=== PATIENT | male | born 1950 | race Caucasian/White ===

== ENCOUNTER 2017-07-07 15:25 | Inpatient (IN) ==
--- NOTE | 2017-07-07 15:28 | Emergency Department Note ---
Disposition Clinical Impression: Cellulitis Disposition: Admitted As Inpatient Condition: Fair General Adult HPI - General Chief complaint: ED Skin/Abscess/Foreign Body Stated complaint: SKIN PROBLEM Time Seen by Provider: 07/07/17 15:27 - Related Data Home Medications Medication Instructions Recorded Confirmed Aspirin Enteric Coated [Aspirin EC] 81 mg PO DAILY 07/07/17 07/07/17 Carbidopa/Levodopa 25/100 [Sinemet 1 each PO HS 07/07/17 07/07/17 25/100] Carvedilol 12.5 mg PO BID 07/07/17 07/07/17 Cetirizine HCl [Zyrtec] 10 mg PO DAILY 07/07/17 07/07/17 Digoxin [Lanoxin] 0.125 mg PO DAILY 07/07/17 07/07/17 FLUoxetine HCl [Prozac] 40 mg PO QAM 07/07/17 07/07/17 Furosemide [Lasix] 20 mg PO DAILY 07/07/17 07/07/17 Gabapentin [Neurontin] 600 mg PO QID 07/07/17 07/07/17 Mag Hydrox/Al Hydrox/Simeth 5 ml PO TID PRN 07/07/17 07/07/17 [Antacid Suspension] Melatonin [Melatin] 9 mg PO HS 07/07/17 07/07/17 Multivitamin [One Daily 1 each PO DAILY 07/07/17 07/07/17 Multivitamin] Omeprazole [PriLOSEC] 20 mg PO BIDAC 07/07/17 07/07/17 Potassium Chloride [K-Tab ER] 20 meq PO DAILY 07/07/17 07/07/17 Rivaroxaban [Xarelto] 20 mg PO DAILY 07/07/17 07/07/17 Spironolactone [Aldactone] 25 mg PO DAILY 07/07/17 07/07/17 Tramadol HCl [Ultram] 50 mg PO TID 07/07/17 07/07/17 Previous Rx's Medication Instructions Recorded Atorvastatin [Lipitor] 20 mg PO HS #60 tablet 07/12/17 Doxycycline 100 mg PO BID #20 capsule 07/12/17 Allergies Allergy/AdvReac Type Severity Reaction Status Date / Time codeine Allergy Hives Verified 07/07/17 15:59 Opioids - Morphine Analogues Allergy Nausea Verified 07/07/17 15:59 diltiazem AdvReac Dizziness Verified 07/07/17 15:59 Course Vital Signs Temperature 97.4 F L 07/07/17 15:27 Pulse Rate 78 07/07/17 15:27 Respiratory Rate 16 07/07/17 15:27 Blood Pressure 109/72 07/07/17 15:27 O2 Sat by Pulse Oximetry 95 07/07/17 15:27 Temperature 97.8 F 07/12/17 07:00 Pulse Rate 66 07/12/17 07:00 Respiratory Rate 18 07/12/17 07:00 Blood Pressure 118/69 07/12/17 07:00 O2 Sat by Pulse Oximetry 94 07/12/17 07:00 Oxygen Delivery Oxygen Delivery Room Air Medical Decision Making - Lab Data Result diagrams: 07/12/17 03:15 07/12/17 03:15 Lab Results 07/07/17 07/07/17 Range/Units 16:02 16:02 WBC 10.5 (4.3-11.1) K/mcL RBC 4.68 (4.19-5.50) M/mcL Hgb 14.0 (12.9-16.9) g/dL Hct 41.6 (37.5-50.1) % MCV 88.9 (83.0-100.0) fL MCH 29.9 (28.0-33.3) pg MCHC 33.7 (31.6-35.5) g/dL RDW 13.1 (11.5-14.5) % Plt Count 218 (140-400) K/mcL MPV 10.1 (9.4-12.4) fL Immature Gran % 1.1 (0-4) % Seg Neutrophils % 73.6 % Lymphocytes % 15.0 % Monocytes % 7.6 % Eosinophils % 2.2 % Basophils % 0.5 % Neutrophils # 7.7 (1.6-8.9) K/mcL Lymphocytes # 1.6 (0.6-4.6) K/mcL Monocytes # 0.8 (0.0-1.3) K/mcL Eosinophils # 0.2 (0.0-0.6) K/mcL Basophils # 0.1 (0.0-0.2) K/mcL Nucleated RBCs/100 WBC 0.2 H (0) /100 WBC Sodium 133 L (136-145) mEq/L Potassium 5.0 (3.5-5.1) mEq/L Chloride 99 (98-107) mEq/L Carbon Dioxide 28 (23-29) mEq/L BUN 29 H (8-23) mg/dL Creatinine 1.60 H (0.70-1.30) mg/dL Est GFR ( Amer) 52 L (> 60) Est GFR (Non-Af Amer) 43 L (> 60) BUN/Creatinine Ratio 18 (6-26) Glucose 162 H (70-105) mg/dL Calculated Osmolality 285 (280-300) Calcium 9.6 (8.6-10.3) mg/dL Attestation Statement - Attestation Attestation: I examined this patient and my medical decision-making was reviewed with the Resident Physician. I agree with the documented findings, disposition and treatment plan as described except to the extent set forth below. [id number] time provided Patient transferred from the [facility] due to left upper extremity swelling. He recently underwent a skin biopsy. The patient has cellulitis extending from his left elbow distally. He does not appear systemically toxic or septic
[2017-07-07] MEDS ORDERED: Vancomycin 2,000 MG in D5% in Water 250 ML IVPB ONE (15:33)
[2017-07-07] MEDS ORDERED: Piperacillin/Tazobactam 3.375 GM in Water for inj. (sterile) 20 ML IVP ONE (15:34)
--- NOTE | 2017-07-07 15:41 | Emergency Department Note ---
Disposition Clinical Impression: Cellulitis Qualifiers: Site of cellulitis: extremity Site of cellulitis of extremity: upper extremity Laterality: left Qualified Code(s): L03.114 - Cellulitis of left upper limb Disposition: Admitted As Inpatient Condition: Fair General Adult HPI - General Chief complaint: ED Skin/Abscess/Foreign Body Stated complaint: SKIN PROBLEM Time Seen by Provider: 07/07/17 15:27 Source: patient Mode of arrival: EMS Limitations: no limitations Nursing Notes Reviewed: Yes Vital Signs Reviewed: Yes - History of Present Illness HPI Narrative: 67-year-old male history of hypertension diabetes A. fib on Xarelto presents for evaluation of left arm infection. Patient states that he had a biopsy obtained from his left arm approximately 8 or 9 days ago. Patient notes that since that in the past 2 days he has noted pain and redness at the site of the biopsy. Patient was [facility] and was given amoxicillin as well as Bactrim. Patient returned to due to unresolving symptoms. Patient denies any fevers. Notes pain redness and swelling over the biopsy site. Denies pain distally but appears to be localized. Neurovascularly intact. Patient denies any systemic symptoms. Denies any chest pain or shortness of breath. Pain Scale: 6 - Related Data Home Medications Medication Instructions Recorded Confirmed Aspirin Enteric Coated [Aspirin EC] 81 mg PO DAILY 07/07/17 07/07/17 Carbidopa/Levodopa 25/100 [Sinemet 1 each PO HS 07/07/17 07/07/17 25/100] Carvedilol 12.5 mg PO BID 07/07/17 07/07/17 Cetirizine HCl [Zyrtec] 10 mg PO DAILY 07/07/17 07/07/17 Digoxin [Lanoxin] 0.125 mg PO DAILY 07/07/17 07/07/17 FLUoxetine HCl [Prozac] 40 mg PO QAM 07/07/17 07/07/17 Furosemide [Lasix] 20 mg PO DAILY 07/07/17 07/07/17 Gabapentin [Neurontin] 600 mg PO QID 07/07/17 07/07/17 Mag Hydrox/Al Hydrox/Simeth 5 ml PO TID PRN 07/07/17 07/07/17 [Antacid Suspension] Melatonin [Melatin] 9 mg PO HS 07/07/17 07/07/17 Multivitamin [One Daily 1 each PO DAILY 07/07/17 07/07/17 Multivitamin] Omeprazole [PriLOSEC] 20 mg PO BIDAC 07/07/17 07/07/17 Potassium Chloride [K-Tab ER] 20 meq PO DAILY 07/07/17 07/07/17 Rivaroxaban [Xarelto] 20 mg PO DAILY 07/07/17 07/07/17 Spironolactone [Aldactone] 25 mg PO DAILY 07/07/17 07/07/17 Tramadol HCl [Ultram] 50 mg PO TID 07/07/17 07/07/17 Allergies Allergy/AdvReac Type Severity Reaction Status Date / Time codeine Allergy Hives Verified 07/07/17 15:59 Opioids - Morphine Analogues Allergy Nausea Verified 07/07/17 15:59 diltiazem AdvReac Dizziness Verified 07/07/17 15:59 All systems ED: reviewed and negative except as stated. Constitutional: Reports: as per HPI. Denies: fever Eyes: Reports: as per HPI ENT ED: Reports: as per HPI Cardiovascular: Reports: as per HPI Respiratory: Reports: as per HPI. Denies: cough, dyspnea Gastrointestinal: Reports: as per HPI. Denies: abdominal pain, nausea, vomiting Genitourinary: Reports: as per HPI Musculoskeletal: Reports: as per HPI Integumentary: Reports: as per HPI Neurological: Reports: as per HPI Psychiatric: Reports: as per HPI Endocrine: Reports: as per HPI Hematological/Lymphatic: Reports: as per HPI Past Medical History - Past Medical History Medical history: Reports: COPD, coronary artery disease, diabetes, hyperlipidemia, hypertension, renal disease Psychiatric history: Reports: no psych history - Social History Smoking Status: Never smoker Smokeless Tobacco Status: No Alcohol use: Reports: none Drug use: Reports: other Physical Exam - General Limitations: no limitations General appearance: alert, in no apparent distress - Head Head exam: atraumatic, normocephalic, normal inspection - Eye Eye exam: Present: normal appearance, EOMI - ENT ENT exam: normal exam, mucous membranes moist - Neck Neck exam: Present: normal inspection - Chest Chest inspection: Present: normal inspection - Respiratory Respiratory exam: Present: normal lung sounds bilaterally. Absent: respiratory distress - Cardiovascular Cardiovascular exam: Present: regular rate, normal rhythm - Abdominal Exam Abdominal exam: Present: soft, Non-Tender - Expanded Upper Extremity Exam Shoulder exam: Present: normal inspection. Absent: tenderness Arm exam: Present: other (Tenderness, swelling, erythema just above the elbow distally. Evidence of a recent incision proximal to the elbow with purulent discharge. Notable crepitus. Neurovascularly intact with brisk cap refill. Able to flex and extend the elbow.) Neuromotor exam: Normal: wrist extension Neurosensory exam: Normal: radial nerve Vascular exam: Normal: capillary refill, radial pulse - Expanded Lower Extremity Exam Neurovascular/Tendon exam: Present: normal capillary refill. Absent: pulse deficit, motor deficit - Neurological Exam Neurological exam: Present: alert, oriented X3 - Skin Skin exam: Present: warm, dry, intact, normal color Course Course Narrative: Patient seen and examined. Patient appears to 4. Concerns of cellulitis and potential deeper infection. Patient will get a CT image of the left arm. Patient to get basic lab work at the [facility]. That will be repeated. Patient also pain control as well as antibiotics. Patient will require admission with IV antibiotics to ensure adequate therapy. Vital Signs Temperature 97.4 F L 07/07/17 15:27 Pulse Rate 78 07/07/17 15:27 Respiratory Rate 16 07/07/17 15:27 Blood Pressure 109/72 07/07/17 15:27 O2 Sat by Pulse Oximetry 95 07/07/17 15:27 Temperature 97.4 F L 07/07/17 18:54 Pulse Rate 77 07/07/17 18:54 Respiratory Rate 16 07/07/17 18:54 Blood Pressure 129/60 07/07/17 18:54 O2 Sat by Pulse Oximetry 96 07/07/17 18:54 Oxygen Delivery Oxygen Delivery Room Air Medical Decision Making - [facility] Narrative Medical decision making narrative: Patient presents for cellulitis of the left arm. Patient did have a biopsy lesion of that arm 8 or 9 days ago. Looking back in the records it appears that there is no surgeon noted that perform the biopsy. The patient was unfamiliar with the surgeon's name. States that he was at traveling. Patient is instructed to follow-up here at [place]. Patient had a bedside ultrasound which showed cobblestoning of the soft tissue with no discrete fluid collection or drainable abscess. Patient had basic lab work as well as a CBC. Patient was started on vancomycin and Zosyn given his history of diabetes. The patient would likely need IV antibiotics and monitoring to ensure symptom improvement. Patient's kidney function would not allow for a contrast scan. Patient will be admitted to the hospitalist service for further evaluation and monitoring. Patient's updated on plan of care. Patient was given adequate pain control emergency department. - Lab Data Lab results reviewed: Yes I reviewed the patient's lab results. Result diagrams: 07/07/17 16:02 07/07/17 16:02 Lab Results 07/07/17 07/07/17 Range/Units 16:02 16:02 WBC 10.5 (4.3-11.1) K/mcL RBC 4.68 (4.19-5.50) M/mcL Hgb 14.0 (12.9-16.9) g/dL Hct 41.6 (37.5-50.1) % MCV 88.9 (83.0-100.0) fL MCH 29.9 (28.0-33.3) pg MCHC 33.7 (31.6-35.5) g/dL RDW 13.1 (11.5-14.5) % Plt Count 218 (140-400) K/mcL MPV 10.1 (9.4-12.4) fL Immature Gran % 1.1 (0-4) % Seg Neutrophils % 73.6 % Lymphocytes % 15.0 % Monocytes % 7.6 % Eosinophils % 2.2 % Basophils % 0.5 % Neutrophils # 7.7 (1.6-8.9) K/mcL Lymphocytes # 1.6 (0.6-4.6) K/mcL Monocytes # 0.8 (0.0-1.3) K/mcL Eosinophils # 0.2 (0.0-0.6) K/mcL Basophils # 0.1 (0.0-0.2) K/mcL Nucleated RBCs/100 WBC 0.2 H (0) /100 WBC Sodium 133 L (136-145) mEq/L Potassium 5.0 (3.5-5.1) mEq/L Chloride 99 (98-107) mEq/L Carbon Dioxide 28 (23-29) mEq/L BUN 29 H (8-23) mg/dL Creatinine 1.60 H (0.70-1.30) mg/dL Est GFR ( Amer) 52 L (> 60) Est GFR (Non-Af Amer) 43 L (> 60) BUN/Creatinine Ratio 18 (6-26) Glucose 162 H (70-105) mg/dL Calculated Osmolality 285 (280-300) Calcium 9.6 (8.6-10.3) mg/dL S.B.A.R. - S.B.A.R. Situation: Demographics Background: Presenting Complaint Assessment: Vital Signs, Course and respsone to treatment, Patient/Family Expectation Recommendation: Barrier(s) to disposition, Recommendation based on pending studies, treatments, or consults S.B.A.R. Report Given to: Dr. Olsen SKaren.A.RReggie Repor Time: 16:49
[2017-07-07] MEDS ORDERED: Vancomycin 1,750 MG in D5% in Water 500 ML IVPB ONE (15:45)
[2017-07-07] MEDS ORDERED: *HR* HYDROmorphone (PF) 1 MG/ML SYRINGE IVP ONE (15:46)
[2017-07-07 16:12] LABS: Basophils # 0.1 K/mcL (0.0-0.2); Basophils % 0.5 %; Eosinophils # 0.2 K/mcL (0.0-0.6); Eosinophils % 2.2 %; Hematocrit 41.6 % (37.5-50.1); Immature Granulocytes % 1.1 % (0-4); Lymphocytes # 1.6 K/mcL (0.6-4.6); Mean Corpuscular HGB Conc 33.7 g/dL (31.6-35.5); Mean Corpuscular Hemoglobin 29.9 pg (28.0-33.3); Mean Corpuscular Volume 88.9 fL (83.0-100.0); Mean Platelet Volume 10.1 fL (9.4-12.4); Monocytes # 0.8 K/mcL (0.0-1.3); Monocytes % 7.6 %; Neutrophils # 7.7 K/mcL (1.6-8.9); Nucleated Red Blood Cells 0.2 /100 WBC (0); Platelet Count 218 K/mcL (140-400); Red Blood Count 4.68 M/mcL (4.19-5.50); Red Cell Distribution Width 13.1 % (11.5-14.5); Segmented Neutrophils % 73.6 %
[2017-07-07 16:23] LABS: Calcium 9.6 mg/dL (8.6-10.3)
[2017-07-07] MEDS ORDERED: Acetaminophen 325 MG TABLET PO PRN (21:01)
[2017-07-07] MEDS ORDERED: Ondansetron 4 MG/2 ML VIAL IVP PRN (21:01)
[2017-07-07] MEDS ORDERED: Naloxone 0.4 MG/ML INJ IVP PRN (21:01)
[2017-07-07] MEDS ORDERED: Ipratropium/Albuterol Neb 3 ML IH PRN (21:11)
[2017-07-07] MEDS ORDERED: Dextrose Gel 15 GM PO PRN ×2 (21:13)
[2017-07-07] MEDS ORDERED: *HR* Dextrose 50 % in Water (Syg) 50 ML SYRINGE IVP PRN (21:13)
[2017-07-07] MEDS ORDERED: D5% in Water 1,000 ML IVC PRN (21:13)
[2017-07-07] MEDS ORDERED: Mag Hydrox/Al Hydrox/Simeth 30 ML UDC PO PRN (21:14)
[2017-07-07] MEDS: Insulin LISPRO 300 UNITS/3 ML VIAL SQ SCH (21:49)
[2017-07-07] MEDS ORDERED: *HR* Morphine 2 MG/ML SYRINGE IVP ONE (22:10)
--- NOTE | 2017-07-07 22:19 | Internal Med History&Physical ---
Date of Encounter: 07/07/17 Time of Encounter: 20:30 Assessment and Plan (1) Cellulitis of left upper extremity Current visit: Yes Status: Acute Acute cellulitis of the LUE. Pt. reports he had biopsy performed at the site one week ago and was fine for two days. On third day. pt. reports edema and erythema at the site and of the LUE. CT of the LUE w/o contrast today shows there is soft tissue swelling within the subcutaneous fat of the forearm, especially at the olecranon. Given the heterogeneous enhancement, phlegmon is considered most likely. a focal fluid collection is not identified. Focal spot at the dural irregularity more proximally and laterally at the level distal humerus presumably represents the biopsy site. Again there is soft tissue stranding deep to that, but no focal fluid collections identified. Blood cultures x 2 ordered. Wound culture ordered. Wound care consult and daily wound care ordered. IVPB clindamycin 900 mg Q8HR for cellulitis infection coverage ( no renal dosing necessary according to pharmacy). Will adjust abx coverage based on culture results. Pt. does not currently meet sepsis criteria. Pt. discussed w/Dr. Dumont who is in agreement w/plan of care. Pt. is at high risk for further morbidity and increased infection d/t current cellulitis, failure of OP abx therapy, current sx, and risk factors. Inpatient. (2) Hyponatremia Current visit: Yes Status: Acute Acute hyponatremia with sodium of 133 on admission. Will monitor sodium in f/u labs and consider using IV fluids judiciously d/t current renal dysfunction for hyponatremia correction. (3) COPD (chronic obstructive pulmonary disease) Current visit: Yes Status: Chronic Hx of chronic COPD. Currently stable. Pt. reports jan mild SOB at this time and is 96% on RA. Supplemental O2 w/titration and SpO2 monitoring as needed. DuoNebs Q6 PRN. Will add steroid if pt. begins to show signs of acute exacerbation. Qualifiers: COPD type: unspecified COPD Qualified Code(s): J44.9 - Chronic obstructive pulmonary disease, unspecified (4) History of atrial fibrillation Current visit: Yes Status: Chronic Hx of chronic atrial fibrillation on Xarelto. Pt. denies chest pain or palpitations on exam. Continuous cardiac telemetry. Will continue pts. Xarelto and monitor for signs of bleeding. (5) CAD (coronary artery disease) Current visit: Yes Status: Chronic Hx of chronic CAD. Pt. reports hx of cardiac risk factors that include, HTN, HLD , DM (uncontrolled at this time by diet alone), atrial fibrillation on Xarelto, and CKD. Continuous cardiac telemetry. Will continue pts. Aldactone, potassium chloride, and Zarontin. We will add Lipitor 20 mg at bedtime. Qualifiers: Coronary Disease-Associated Artery/Lesion type: [place] artery [place] vs. transplanted heart: [place] heart Associated angina: angina presence unspecified Qualified Code(s): I25.10 - Atherosclerotic heart disease of [place] coronary artery without angina pectoris (6) Diabetes Current visit: Yes Status: Chronic Hx of chronic diabetes that the pt. states he manages w/diet. On admission, BG was 162. Pt. does not currently use any oral anti-hyperglycemic medications or insulin. A1c in a.m labs. BG checks ACHS. Will administer low-dose correction insulin sliding scale PRN and hypoglycemic protocol. ADA and cardiac diet ordered. Diabetes education ordered. Qualifiers: Diabetes mellitus type: type 2 Diabetes mellitus complication status: with unspecified complications Diabetes mellitus usp insulin use: without usp use Qualified Code(s): E11.8 - Type 2 diabetes mellitus with unspecified complications (7) HLD (hyperlipidemia) Current visit: Yes Status: Chronic Hx of chronic HLD. Lipid panel in a.m. labs. Pt. does not currently take statin for his HLD. Administer Lipitor 20 mg HS. Qualifiers: Hyperlipidemia type: pure hypercholesterolemia Qualified Code(s): E78.00 - Pure hypercholesterolemia, unspecified; E78.0 - Pure hypercholesterolemia (8) HTN (hypertension) Current visit: Yes Status: Chronic Hx of chronic HTN. Monitor pt. and VS. Continue pts. aldactone. Qualifiers: Hypertension type: essential hypertension Qualified Code(s): I10 - Essential (primary) hypertension (9) CKD (chronic kidney disease) stage 3, GFR 30-59 ml/min Current visit: Yes Status: Chronic Hx of CKD. Pt. currently in stage 3 w/GFR of 43 and creatinine of 1.60. Will use IV fluids judiciously and avoid nephrotoxins. Monitor I&O and f/u labs. (10) DVT prophylaxis Current visit: Yes Status: Acute Continue pts. Xarelto for DVT prophylaxis. Monitor pt. for signs of bleeding. Internal Medicine - H&P: HPI Chief complaint: Pain and swelling of upper left arm Admitted From: Emergency Dept Plans for Post Hospital Care: Home History of present illness: Mr. Roberts is a 67 year old male with medical hx of COPD, CAD, diabetes the patient states he controls with diet only, atrial fibrillation, HLD, HTN, and renal disease presents from the ED after being referred from the [place] urgent care for chief complaint of pain and swelling in his left upper arm for the past 5 days. Patient states he had a biopsy one week ago and his arm was okay for 2 days. On day 3 the patient arm began to become edematous and erythematous. He was placed on by mouth amoxicillin and Bactrim. Patient states symptoms worsened. Patient reports shortness of breath associated with his COPD but denies recent illness, fever, chills, nausea, vomiting, chest pain, palpitations , changes in vision, headache, cough, abdominal pain, diarrhea, constipation, unusual bleeding, numbness, tingling, dizziness, lightheadedness, pre-syncope, or syncope. Past Med Surg Social Fam HX - Past Medical History Source: patient, old records reviewed Medical history: COPD, coronary artery disease, diabetes (Pt. reports he controls his DM w/diet only. BG in ED was >160), hyperlipidemia, hypertension, renal disease Psychiatric history: no psych history - Past Surgical History Surgical History: non-contributory - Social History Smoking Status: Former smoker Packs per day: 2 PPD - Reports quitting 30 years ago Smokeless Tobacco Status: No Alcohol use: none Drug use: other Current living situation: Home Activity Level: Independent ambulation Recent Out of Country Travel Within the Last 8 Weeks: No Exposure or Possible Exposure to Illness During Travel: No - Family History Father Race: Family Member Ethnicity: Non- Living Status: Age at : 66 Cause of : Hit by a train Hx Family Cardiac Disorders: Yes (CAD, SC x3, HTN) Hx Family Neuromuscular Disorders: Yes (Parkinson's disease) Mother Race: Family Member Ethnicity: Non- Living Status: Age at : 91 Cause of : Old age Hx Family Genitourinary Disorders: Yes (Lost one kidney d/t TB as a child) Brother Race: Family Member Ethnicity: Non- Living Status: Age at : 55 Cause of : Drug overdose Hx Family Psychosocial Disorders: Yes (Drug abuse) Sister Race: Family Member Ethnicity: Non- Living Status: Still Living Hx Family Musculoskeletal Disorders: Yes (Osteoporosis) Internal Medicine - H&P: Meds Aspirin Enteric Coated [Aspirin EC] 81 mg PO DAILY 07/07/17 [History] Carbidopa/Levodopa 25/100 [Sinemet 25/100] 1 each PO HS 07/07/17 [History] Carvedilol 12.5 mg PO BID 07/07/17 [History] Cetirizine HCl [Zyrtec] 10 mg PO DAILY 07/07/17 [History] Digoxin [Lanoxin] 0.125 mg PO DAILY 07/07/17 [History] FLUoxetine HCl [Prozac] 40 mg PO QAM 07/07/17 [History] Furosemide [Lasix] 20 mg PO DAILY 07/07/17 [History] Gabapentin [Neurontin] 600 mg PO QID 07/07/17 [History] Mag Hydrox/Al Hydrox/Simeth [Antacid Suspension] 5 ml PO TID PRN 07/07/17 [ History] Melatonin [Melatin] 9 mg PO HS 07/07/17 [History] Multivitamin [One Daily Multivitamin] 1 each PO DAILY 07/07/17 [History] Omeprazole [PriLOSEC] 20 mg PO BIDAC 07/07/17 [History] Potassium Chloride [K-Tab ER] 20 meq PO DAILY 07/07/17 [History] Rivaroxaban [Xarelto] 20 mg PO DAILY 07/07/17 [History] Spironolactone [Aldactone] 25 mg PO DAILY 07/07/17 [History] Tramadol HCl [Ultram] 50 mg PO TID 07/07/17 [History] 3 Allergy/AdvReac Type Severity Reaction Status Date / Time codeine Allergy Hives Verified 07/07/17 15:59 Opioids - Morphine Analogues Allergy Nausea Verified 07/07/17 15:59 diltiazem AdvReac Dizziness Verified 07/07/17 15:59 All Systems PM: A 10-system review of systems was performed and is negative for pertinent findings except as documented above in the HPI. - Constitutional Constitutional: as per HPI, no chills, no fever(s), no night sweats - EENT Eyes: no change in vision, no discharge, no pain, no photophobia Ears: no ear discharge, no ear pain, no tinnitus Nose, mouth and throat: no dysphagia, no nasal discharge, no neck pain, no sore throat - Breasts Breasts: as per HPI - Cardiovascular Cardiovascular ROS IM: as per HPI, dyspnea, dyspnea on exertion, no chest pain, no diaphoresis, no lightheadedness, no palpitations, no syncope - Respiratory Respiratory: as per HPI, dyspnea, dyspnea on exertion, no cough, no wheezing, no excessive phlegm production - Gastrointestinal Gastrointestinal: no abdominal pain, no diarrhea, no hematemesis, no hematochezia, no melena, no nausea, no vomiting - Genitourinary Genitourinary ROS male: as per HPI - Musculoskeletal Musculoskeletal ROS IM: no numbness, no tingling - Integumentary Integumentary IM: as per HPI, erythema (Left upper arm at biopsy incision site) , sores (Left upper arm at biopsy incision site) - Neurological Neurological ROS: no confusion, no convulsions, no focal weakness, no numbness, no tingling, no tremor(s) - Psychiatric Psychiatric: as per HPI - Endocrine Endocrine IM: as per HPI - Hematologic/Lymphatic Hematologic/Lymphatic: no easy bruising - Allergic/Immunologic Allergic/Immunologic: as per HPI - Constitutional Vitals: Temp Pulse Resp BP Pulse Ox 97.4 F L 77 16 129/60 96 07/07/17 18:54 07/07/17 18:54 07/07/17 18:54 07/07/17 18:54 07/07/17 18:54 General appearance: Present: cooperative, A&O X 3, pleasant, no acute distress, obese, answers questions appropriately - Head Head exam: Present: atraumatic, normal inspection, normocephalic - Eye Eye exam: Present: PERRL, conjuntiva pink, sclera anicteric Pupils: Present: PERRL - ENT ENT exam: Present: normal exam, normal external ear exam - Neck Neck exam general surgery: Present: normal inspection, supple, trachea midline. Absent: lymphadenopathy - Respiratory Respiratory exam: Present: accessory muscle use, decreased breath sounds - Cardiovascular Cardiovascular exam: Present: RRR, +S1, +S2. Absent: diastolic murmur, gallop, rubs, systolic murmur - GI/Abdominal GI/Abdominal exam: Present: normal bowel sounds, soft, no peritoneal signs. Absent: distended, tenderness - Rectal Rectal exam: Present: deferred - Additional comments: exam deferred. - Extremities Exam Extremities exam: Present: warm, radial pulses palpable and symmetrical. Absent : calf tenderness, cyanotic, pedal edema - Expanded Upper Extremities Exam Upper Arm exam: Present: erythema (LUE), swelling (LUE), tenderness (LUE) - Back Exam Back exam: Present: normal inspection - Neurological Exam Neurological exam: Present: CN II-XII intact, oriented X3, no focal deficits. Absent: pronater drift, facial droop, speech deficit - Psychiatric Psychiatric exam: Present: normal affect, normal mood - Skin Skin exam: Present: erythema (LUE), warm (LUE) Internal Med - H&P Results - Labs CBC & Chem 7: 07/07/17 16:02 07/07/17 16:02 - Diagnostic Studies Other Images Additional comments: Impressions Upper Extremity CT 07/07/17 16:31 IMPRESSION: 1. There is soft tissue swelling within the subcutaneous fat of the forearm, especially at the olecranon. Given the heterogeneous enhancement, phlegmon is considered most likely. A focal fluid collection is not identified. 2. Focal spot the dural irregularity more proximally and laterally at the level the distal humerus presumably represents the biopsy site. Again, there is soft tissue stranding deep to that, but no focal fluid collection is identified. D/ / Kody Rodgers MD / Kody Rodgers MD Interpreting Provider: Kody Rodgers MD
[2017-07-07] MEDS ORDERED: Lidocaine -MPF 1% 5 ML AMPUL SQ ONE (22:30)
[2017-07-07] MEDS: *HR* OxyCODONE/APAP 5/325 TABLET PO PRN (22:36)
[2017-07-07] MEDS: Gabapentin 300 MG CAPSULE PO SCH (22:36)
[2017-07-07] MEDS ORDERED: Water for inj. (sterile) 10 ML IV ONE (23:23)
[2017-07-08] MEDS: Clindamycin 900 MG/50 ML 900 MG/50 ML IV.SOLN IVPB SCH ×4 (00:02→23:47)
--- NOTE | 2017-07-08 02:40 | Procedure Note ---
Date of procedure: 07/07/17 Pre-op diagnosis: Infection at site of sutures status post skin biopsy. Post-op diagnosis: same Procedure: Area was cleaned with betadine and alcohol swab. The area of infection was injected with 5 ml of 1% Lidocaine. There was about 1 ml of blood loss. Patient is on Xarelto and was monitored for any excess bleeding. There were 8 sutures that were removed. there was about 2 cm of region along the surgical cut site that could not be seen due to inflammed tissue. The wound site was irrigated and left open to drain. Anesthesia: local Estimated blood loss (cc): 1 Pathology: none sent Condition: stable (Done at bedside)
[2017-07-08 05:47] LABS: Basophils # 0.1 K/mcL (0.0-0.2); Basophils % 0.9 %; Eosinophils # 0.5 K/mcL (0.0-0.6); Eosinophils % 4.8 %; Hematocrit 39.5 % (37.5-50.1); Hemoglobin 13.7 g/dL (12.9-16.9); Immature Granulocytes % 1.6 % (0-4); Mean Corpuscular HGB Conc 34.7 g/dL (31.6-35.5); Mean Corpuscular Hemoglobin 30.2 pg (28.0-33.3); Mean Corpuscular Volume 87.2 fL (83.0-100.0); Mean Platelet Volume 10.1 fL (9.4-12.4); Monocytes # 1.1 K/mcL (0.0-1.3); Monocytes % 11.5 %; Neutrophils # 6.1 K/mcL (1.6-8.9); Platelet Count 166 K/mcL (140-400); Red Blood Count 4.53 M/mcL (4.19-5.50); Red Cell Distribution Width 13.2 % (11.5-14.5); Segmented Neutrophils % 61.2 %
[2017-07-08 06:06] LABS: Hemoglobin A1C 6.7 %
[2017-07-08] MEDS: Insulin LISPRO 300 UNITS/3 ML VIAL SQ SCH ×4 (07:44→21:13)
[2017-07-08] MEDS ORDERED: Gabapentin 300 MG CAPSULE PO SCH (09:00)
[2017-07-08] MEDS ORDERED: *HR* Rivaroxaban 10 MG TABLET PO SCH (09:00)
[2017-07-08 09:43] LABS: Albumin 3.7 g/dL (3.5-5.7); Albumin/Globulin Ratio 1.3 (1.1-2.2); Bilirubin,Total 1.1 mg/dL (0.3-1.0); Chol/HDL Ratio 3.9 (0-4.9); Globulin 2.9 g/dL (2.4-3.5); Magnesium 2.1 mg/dL (1.6-2.6); Potassium 4.5 mEq/L (3.5-5.1); Total Protein 6.6 g/dL (6.4-8.9)
[2017-07-08] MEDS: Gabapentin 300 MG CAPSULE PO SCH ×4 (09:43→21:13)
[2017-07-08] MEDS: Multivit/Ca/Min/Fe/FA 1 TAB TABLET PO SCH (09:43)
[2017-07-08] MEDS: traMADol 50 MG TABLET PO SCH ×3 (09:43→21:12)
[2017-07-08] MEDS: *HR* Digoxin 0.125 MG TABLET PO SCH (09:44)
[2017-07-08] MEDS: Loratadine 10 MG TABLET PO SCH (09:45)
[2017-07-08] MEDS: Furosemide 20 MG TABLET PO SCH (09:45)
[2017-07-08] MEDS: Aspirin Enteric Coated 81 MG Tablet PO SCH (09:45)
[2017-07-08] MEDS: Spironolactone 25 MG TABLET PO SCH (09:45)
[2017-07-08] MEDS: FLUoxetine 20 MG CAPSULE PO SCH (09:45)
[2017-07-08] MEDS: *HR* OxyCODONE/APAP 5/325 TABLET PO PRN (11:41)
--- NOTE | 2017-07-08 15:59 | Internal Med Progress Note ---
Date of Encounter: 07/08/17 Time of Encounter: 09:00 - Assessment and plan (1) Cellulitis of left upper extremity Current Visit: Yes Status: Acute Assessment and plan: Patient had biopsy of mole one week ago at the [facility] to left upper arm. A few days later he noticed cellulitis around the area. Patient failed outpatient treatment with amoxicillin and Bactrim. CT of the arm showed soft tissue swelling with no fluid collection. Patient received 1 dose of vancomycin and Zosyn in the emergency department. Patient had internal sutures removed by admitting physician. The patient is being treated with clindamycin 900 IV mg 3 times daily. Wound cultures have been collected and received, pending. Will adjust antibiotic based on results. Continue IV antibiotic and pain control. Wound care consultation is in and pending. (2) COPD (chronic obstructive pulmonary disease) Current Visit: Yes Status: Chronic Assessment and plan: No acute exacerbation. Patient is not requiring supplemental oxygen. Continue home medications. Qualifiers: COPD type: unspecified COPD Qualified Code(s): J44.9 - Chronic obstructive pulmonary disease, unspecified (3) CAD (coronary artery disease) Current Visit: Yes Status: Chronic Assessment and plan: Patient denies chest pain. Continue aspirin, statin, beta pili. Qualifiers: Coronary Disease-Associated Artery/Lesion type: [place] artery [place] vs. transplanted heart: [place] heart Associated angina: angina presence unspecified Qualified Code(s): I25.10 - Atherosclerotic heart disease of [place] coronary artery without angina pectoris (4) Diabetes Current Visit: Yes Status: Chronic Assessment and plan: A1c is 6.7. Continue Accu-Cheks, diabetic diet, sliding scale insulin. Qualifiers: Diabetes mellitus type: type 2 Diabetes mellitus complication status: with unspecified complications Diabetes mellitus intermediate teacher insulin use: without assisted use Qualified Code(s): E11.8 - Type 2 diabetes mellitus with unspecified complications (5) HLD (hyperlipidemia) Current Visit: Yes Status: Chronic Assessment and plan: Chronic. Continue statin home dose. Qualifiers: Hyperlipidemia type: pure hypercholesterolemia Qualified Code(s): E78.00 - Pure hypercholesterolemia, unspecified; E78.0 - Pure hypercholesterolemia (6) HTN (hypertension) Current Visit: Yes Status: Chronic Assessment and plan: Well-controlled. Continue home medications. Continue monitor vital signs per order. Qualifiers: Hypertension type: essential hypertension Qualified Code(s): I10 - Essential (primary) hypertension (7) CKD (chronic kidney disease) stage 3, GFR 30-59 ml/min Current Visit: Yes Status: Chronic Assessment and plan: Serum creatinine 1.53, GFR 45, mildly improved since admission. Gentle IV hydration Avoid nephrotoxins Continue to monitor labs in the morning. (8) DVT prophylaxis Current Visit: Yes Status: Acute Assessment and plan: Patient is on Xarelto (9) Hyponatremia Current Visit: Yes Status: Acute Assessment and plan: Sodium is 133. 0.9 normal saline gentle IV fluid hydration at 60 mL/hour. Monitor sodium in the morning (10) History of atrial fibrillation Current Visit: Yes Status: Chronic Assessment and plan: Rate controlled with Coreg. Patient is on anticoagulation with Xarelto. - Time Spent With Patient less than 15 minutes - Subjective Interval history: Patient was seen and assessed at bedside at 9 AM. He denies any headache or blurred vision. He states he is just tired. He reports that he feels like he has the flu, body aches, feeling fatigued. He denies abdominal pain or nausea, vomiting diarrhea. - Constitutional Vitals: Temp Pulse Resp BP Pulse Ox 98.9 F 72 16 120/69 95 07/08/17 11:16 07/08/17 11:16 07/08/17 11:16 07/08/17 11:16 07/08/17 11:16 General appearance: Present: cooperative, A&O X 3, pleasant, no acute distress, obese, answers questions appropriately - Head Head exam: Present: atraumatic, normal inspection, normocephalic - Eye Eye exam: Present: normal appearance, conjuntiva pink, sclera anicteric - Neck Neck exam general surgery: Present: normal inspection, supple, trachea midline. Absent: lymphadenopathy, tenderness - Respiratory Respiratory exam: Present: CTAB. Absent: accessory muscle use, decreased breath sounds, rales, respiratory distress, rhonchi, wheezes - Cardiovascular Cardiovascular exam: Present: RRR, +S1, +S2. Absent: diastolic murmur, gallop, rubs, systolic murmur - GI/Abdominal GI/Abdominal exam: Present: normal bowel sounds, soft, no peritoneal signs. Absent: distended, hepatomegaly, tenderness - Extremities Exam Extremities exam: Present: normal capillary refill, normal inspection, warm, radial pulses palpable and symmetrical. Absent: calf tenderness, cyanotic, pedal edema, tenderness - Neurological Exam Neurological exam: Present: alert, oriented X3, no focal deficits. Absent: facial droop, speech deficit - Skin Skin exam: Present: dry, intact, normal color, warm. Absent: rash Internal Medicine: Result - Labs CBC & Chem 7: 07/08/17 05:14 07/08/17 08:32 Labs: Short CBC 07/08/17 Range/Units 05:14 WBC 9.9 (4.3-11.1) K/mcL Hgb 13.7 (12.9-16.9) g/dL Hct 39.5 (37.5-50.1) % Plt Count 166 (140-400) K/mcL Neutrophils # 6.1 (1.6-8.9) K/mcL BMP 07/08/17 08:32 Sodium 133 L Potassium 4.5 Chloride 99 Carbon Dioxide 26 BUN 26 H Creatinine 1.53 H Glucose 123 H Calcium 9.0 Liver Function 07/08/17 Range/Units 08:32 Total Bilirubin 1.1 H (0.3-1.0) mg/dL AST 21 (13-39) Units/L ALT 24 (7-52) Units/L Alkaline Phosphatase 47 (34-104) Units/L Albumin 3.7 (3.5-5.7) g/dL Consult Discharge Plan - Plan [facility]errals: [facility] [Primary Care Provider] -
[2017-07-08] MEDS ORDERED: 0.9 % Sodium Chloride 1,000 ML IVC SCH (16:15)
[2017-07-08] MEDS: Melatonin 3 MG TABLET PO SCH (21:11)
[2017-07-08] MEDS: Carbidopa/Levodopa 25/100 TABLET PO SCH (21:12)
[2017-07-08] MEDS: *HR* Morphine 2 MG/ML SYRINGE IVP PRN (23:44)
[2017-07-09 03:38] LABS: Basophils # 0.1 K/mcL (0.0-0.2); Basophils % 1.1 %; Eosinophils # 0.5 K/mcL (0.0-0.6); Eosinophils % 5.3 %; Hematocrit 38.1 % (37.5-50.1); Immature Granulocytes % 1.3 % (0-4); Lymphocytes # 2.1 K/mcL (0.6-4.6); Mean Corpuscular HGB Conc 34.1 g/dL (31.6-35.5); Mean Corpuscular Volume 87.8 fL (83.0-100.0); Mean Platelet Volume 9.5 fL (9.4-12.4); Monocytes # 0.9 K/mcL (0.0-1.3); Monocytes % 10.8 %; Neutrophils # 4.8 K/mcL (1.6-8.9); Platelet Count 186 K/mcL (140-400); Red Blood Count 4.34 M/mcL (4.19-5.50); Red Cell Distribution Width 13.2 % (11.5-14.5); Segmented Neutrophils % 56.5 %
[2017-07-09 04:00] LABS: Albumin 3.7 g/dL (3.5-5.7); Albumin/Globulin Ratio 1.4 (1.1-2.2); Bilirubin,Total 0.8 mg/dL (0.3-1.0); Calcium 9.1 mg/dL (8.6-10.3); Globulin 2.7 g/dL (2.4-3.5); Potassium 4.8 mEq/L (3.5-5.1); Total Protein 6.4 g/dL (6.4-8.9)
[2017-07-09] MEDS: Insulin LISPRO 300 UNITS/3 ML VIAL SQ SCH ×4 (10:05→20:30)
[2017-07-09] MEDS: Gabapentin 300 MG CAPSULE PO SCH ×4 (10:07→20:30)
[2017-07-09] MEDS: Aspirin Enteric Coated 81 MG Tablet PO SCH (10:08)
[2017-07-09] MEDS: Multivit/Ca/Min/Fe/FA 1 TAB TABLET PO SCH (10:08)
[2017-07-09] MEDS: FLUoxetine 20 MG CAPSULE PO SCH (10:08)
[2017-07-09] MEDS: *HR* Digoxin 0.125 MG TABLET PO SCH (10:08)
[2017-07-09] MEDS: Spironolactone 25 MG TABLET PO SCH (10:08)
[2017-07-09] MEDS: traMADol 50 MG TABLET PO SCH ×3 (10:08→20:29)
[2017-07-09] MEDS: Furosemide 20 MG TABLET PO SCH (10:08)
[2017-07-09] MEDS: Loratadine 10 MG TABLET PO SCH (10:08)
[2017-07-09] MEDS: Clindamycin 900 MG/50 ML 900 MG/50 ML IV.SOLN IVPB SCH ×3 (10:09→23:28)
--- NOTE | 2017-07-09 15:13 | Internal Med Progress Note ---
Date of Encounter: 07/09/17 Time of Encounter: 12:40 - Assessment and plan (1) Cellulitis of left upper extremity Current Visit: Yes Status: Acute Assessment and plan: Patient had biopsy of mole one week ago at the [facility] to left upper arm. A few days later he noticed cellulitis around the area. Patient failed outpatient treatment with amoxicillin and Bactrim. CT of the arm showed soft tissue swelling with no fluid collection. Patient received 1 dose of vancomycin and Zosyn in the emergency department. Patient had internal sutures removed by admitting physician. The patient is being treated with clindamycin 900 IV mg 3 times daily. Limited area wound culture shows staph aureus. Sensitivity is pending. Continue IV antibiotic and pain control. Wound care consultation is in and pending. (2) COPD (chronic obstructive pulmonary disease) Current Visit: Yes Status: Chronic Assessment and plan: No acute exacerbation. Patient is not requiring supplemental oxygen. Continue home medications. Lungs are clear and diminished in posterior lung [place]. There is no wheezing, rhonchi, rales, no respiratory distress. Qualifiers: COPD type: unspecified COPD Qualified Code(s): J44.9 - Chronic obstructive pulmonary disease, unspecified (3) CAD (coronary artery disease) Current Visit: Yes Status: Chronic Assessment and plan: Patient denies chest pain. Continue aspirin, statin, beta pili. Qualifiers: Coronary Disease-Associated Artery/Lesion type: [place] artery [place] vs. transplanted heart: [place] heart Associated angina: angina presence unspecified Qualified Code(s): I25.10 - Atherosclerotic heart disease of [place] coronary artery without angina pectoris (4) Diabetes Current Visit: Yes Status: Chronic Assessment and plan: A1c is 6.7. Continue Accu-Cheks, diabetic diet, sliding scale insulin. Qualifiers: Diabetes mellitus type: type 2 Diabetes mellitus complication status: with unspecified complications Diabetes mellitus middle or intermediate school principal insulin use: without intermediate use Qualified Code(s): E11.8 - Type 2 diabetes mellitus with unspecified complications (5) HLD (hyperlipidemia) Current Visit: Yes Status: Chronic Assessment and plan: Chronic. Continue statin home dose. Lipid panel within normal limits. Qualifiers: Hyperlipidemia type: pure hypercholesterolemia Qualified Code(s): E78.00 - Pure hypercholesterolemia, unspecified; E78.0 - Pure hypercholesterolemia (6) HTN (hypertension) Current Visit: Yes Status: Chronic Assessment and plan: Well-controlled. Continue home medications. Continue monitor vital signs. Qualifiers: Hypertension type: essential hypertension Qualified Code(s): I10 - Essential (primary) hypertension (7) CKD (chronic kidney disease) stage 3, GFR 30-59 ml/min Current Visit: Yes Status: Chronic Assessment and plan: Serum creatinine 1.55, GFR 45, mildly improved since admission. Gentle IV hydration Avoid nephrotoxins Continue to monitor labs in the morning. (8) DVT prophylaxis Current Visit: Yes Status: Acute Assessment and plan: Patient is on Xarelto. Patient has been ambulatory in the room. (9) Hyponatremia Current Visit: Yes Status: Acute Assessment and plan: Sodium is 134, improving. Monitor sodium in the morning (10) History of atrial fibrillation Current Visit: Yes Status: Chronic Assessment and plan: Rate controlled with Coreg. Patient is anticoagulated with Xarelto. - Time Spent With Patient less than 15 minutes - Subjective Interval history: Patient was seen and assessed at bedside at 1240. He denies any headache or blurred vision. He denies abdominal pain or nausea, vomiting diarrhea. She states that he feels some better today and has noticed that his dressing has less drainage on it. We discussed the fact that he needs to stay until sensitivity is available. He agreed and denies any questions. - Constitutional Vitals: Temp Pulse Resp BP Pulse Ox 98.4 F 72 18 101/66 94 07/09/17 11:47 07/09/17 11:47 07/09/17 11:47 07/09/17 11:47 07/09/17 11:47 General appearance: Present: cooperative, A&O X 3, pleasant, no acute distress, obese, answers questions appropriately - Head Head exam: Present: atraumatic, normal inspection, normocephalic - Eye Eye exam: Present: PERRL, conjuntiva pink, sclera anicteric Pupils: Present: PERRL - Neck Neck exam general surgery: Present: supple, trachea midline. Absent: lymphadenopathy - Respiratory Respiratory exam: Present: CTAB. Absent: accessory muscle use, rales, rhonchi, wheezes - Cardiovascular Cardiovascular exam: Present: RRR, +S1, +S2. Absent: diastolic murmur, gallop, rubs, systolic murmur - GI/Abdominal GI/Abdominal exam: Present: distended, normal bowel sounds, soft. Absent: tenderness - Extremities Exam Extremities exam: Present: normal capillary refill, warm, radial pulses palpable and symmetrical. Absent: calf tenderness, cyanotic, pedal edema - Neurological Exam Neurological exam: Present: alert, oriented X3, no focal deficits. Absent: facial droop, speech deficit - Skin Skin exam: Present: dry, normal color, warm. Absent: intact Internal Medicine: Result - Labs CBC & Chem 7: 07/09/17 03:00 07/09/17 03:00 Labs: Short CBC 07/09/17 Range/Units 03:00 WBC 8.5 (4.3-11.1) K/mcL Hgb 13.0 (12.9-16.9) g/dL Hct 38.1 (37.5-50.1) % Plt Count 186 (140-400) K/mcL Neutrophils # 4.8 (1.6-8.9) K/mcL BMP 07/09/17 03:00 Sodium 134 L Potassium 4.8 Chloride 102 Carbon Dioxide 26 BUN 25 H Creatinine 1.55 H Glucose 138 H Calcium 9.1 Liver Function 07/09/17 Range/Units 03:00 Total Bilirubin 0.8 (0.3-1.0) mg/dL AST 20 (13-39) Units/L ALT 6 L (7-52) Units/L Alkaline Phosphatase 45 (34-104) Units/L Albumin 3.7 (3.5-5.7) g/dL Consult Discharge Plan - Plan [facility]errals: [facility] [Primary Care Provider] -
[2017-07-09] MEDS: *HR* OxyCODONE/APAP 5/325 TABLET PO PRN (19:39)
[2017-07-09] MEDS: Carbidopa/Levodopa 25/100 TABLET PO SCH (20:29)
[2017-07-09] MEDS: Melatonin 3 MG TABLET PO SCH (20:30)
[2017-07-09] MEDS: *HR* Morphine 2 MG/ML SYRINGE IVP PRN (23:27)
[2017-07-10 03:59] LABS: Basophils # 0.1 K/mcL (0.0-0.2); Basophils % 0.6 %; Eosinophils # 0.4 K/mcL (0.0-0.6); Eosinophils % 4.4 %; Hematocrit 38.8 % (37.5-50.1); Hemoglobin 13.1 g/dL (12.9-16.9); Immature Granulocytes % 1.5 % (0-4); Lymphocytes # 2.2 K/mcL (0.6-4.6); Lymphocytes % 23.7 %; Mean Corpuscular HGB Conc 33.8 g/dL (31.6-35.5); Mean Corpuscular Hemoglobin 29.9 pg (28.0-33.3); Mean Corpuscular Volume 88.6 fL (83.0-100.0); Mean Platelet Volume 9.3 fL (9.4-12.4); Monocytes # 0.8 K/mcL (0.0-1.3); Monocytes % 8.6 %; Neutrophils # 5.7 K/mcL (1.6-8.9); Platelet Count 204 K/mcL (140-400); Red Blood Count 4.38 M/mcL (4.19-5.50); Red Cell Distribution Width 12.9 % (11.5-14.5); Segmented Neutrophils % 61.2 %
[2017-07-10 04:19] LABS: Albumin 3.7 g/dL (3.5-5.7); Albumin/Globulin Ratio 1.3 (1.1-2.2); Bilirubin,Total 0.8 mg/dL (0.3-1.0); Calcium 9.2 mg/dL (8.6-10.3); Globulin 2.8 g/dL (2.4-3.5); Potassium 4.5 mEq/L (3.5-5.1); Total Protein 6.5 g/dL (6.4-8.9)
[2017-07-10] MEDS: Insulin LISPRO 300 UNITS/3 ML VIAL SQ SCH ×4 (07:44→20:28)
[2017-07-10] MEDS: *HR* Digoxin 0.125 MG TABLET PO SCH (08:21)
[2017-07-10] MEDS: Gabapentin 300 MG CAPSULE PO SCH ×4 (08:21→20:20)
[2017-07-10] MEDS: traMADol 50 MG TABLET PO SCH ×3 (08:22→20:21)
[2017-07-10] MEDS: Spironolactone 25 MG TABLET PO SCH (08:22)
[2017-07-10] MEDS: FLUoxetine 20 MG CAPSULE PO SCH (08:22)
[2017-07-10] MEDS: Clindamycin 900 MG/50 ML 900 MG/50 ML IV.SOLN IVPB SCH ×3 (08:22→23:25)
[2017-07-10] MEDS: Furosemide 20 MG TABLET PO SCH (08:22)
[2017-07-10] MEDS: Multivit/Ca/Min/Fe/FA 1 TAB TABLET PO SCH (08:22)
[2017-07-10] MEDS: Aspirin Enteric Coated 81 MG Tablet PO SCH (08:22)
[2017-07-10] MEDS: Loratadine 10 MG TABLET PO SCH (08:22)
--- NOTE | 2017-07-10 13:56 | Internal Med Progress Note ---
Date of Encounter: 07/10/17 Time of Encounter: 08:20 - Assessment and plan (1) Cellulitis of left upper extremity Current Visit: Yes Status: Acute Assessment and plan: Patient had biopsy of mole one week ago at the [facility] to left upper arm. A few days later he noticed cellulitis around the area. Patient failed outpatient treatment with amoxicillin and Bactrim. CT of the arm showed soft tissue swelling with no fluid collection. Patient received 1 dose of vancomycin and Zosyn in the emergency department. Patient had internal sutures removed by admitting physician. The patient is being treated with clindamycin 900 IV mg 3 times daily. Limited area wound culture shows staph aureus. Sensitivity is pending. Continue IV antibiotic and pain control. Wound care consultation is in and pending. Removed one remaining suture today. Wound appears to be healing well and there is less seepage. She will most likely need to go home on IV antibiotics. (2) COPD (chronic obstructive pulmonary disease) Current Visit: Yes Status: Chronic Assessment and plan: No acute exacerbation. Patient is not requiring supplemental oxygen. Continue home medications. Lungs are clear. There is no wheezing, rhonchi, rales, no respiratory distress. Qualifiers: COPD type: unspecified COPD Qualified Code(s): J44.9 - Chronic obstructive pulmonary disease, unspecified (3) CAD (coronary artery disease) Current Visit: Yes Status: Chronic Assessment and plan: Patient denies chest pain. Continue aspirin, statin, beta pili. Qualifiers: Coronary Disease-Associated Artery/Lesion type: [place] artery [place] vs. transplanted heart: [place] heart Associated angina: angina presence unspecified Qualified Code(s): I25.10 - Atherosclerotic heart disease of [place] coronary artery without angina pectoris (4) Diabetes Current Visit: Yes Status: Chronic Assessment and plan: A1c is 6.7. Continue Accu-Cheks, diabetic diet, sliding scale insulin. Accu-Cheks have been better controlled. Qualifiers: Diabetes mellitus type: type 2 Diabetes mellitus complication status: with unspecified complications Diabetes mellitus intermodal dispatcher insulin use: without intermodal dispatcher use Qualified Code(s): E11.8 - Type 2 diabetes mellitus with unspecified complications (5) HLD (hyperlipidemia) Current Visit: Yes Status: Chronic Assessment and plan: Chronic. Continue statin home dose. Qualifiers: Hyperlipidemia type: pure hypercholesterolemia Qualified Code(s): E78.00 - Pure hypercholesterolemia, unspecified; E78.0 - Pure hypercholesterolemia (6) HTN (hypertension) Current Visit: Yes Status: Chronic Assessment and plan: Well-controlled in inpatient setting.. Continue home medications. Continue monitor vital signs. Qualifiers: Hypertension type: essential hypertension Qualified Code(s): I10 - Essential (primary) hypertension (7) CKD (chronic kidney disease) stage 3, GFR 30-59 ml/min Current Visit: Yes Status: Chronic Assessment and plan: Serum creatinine 1.48, GFR 47. Renal function continues to improve. Gentle IV hydration Avoid nephrotoxins Continue to monitor labs in the morning. (8) DVT prophylaxis Current Visit: Yes Status: Acute Assessment and plan: Patient is on Xarelto. Patient has been ambulatory in the room. Continue to encourage ambulation. (9) Hyponatremia Current Visit: Yes Status: Acute Assessment and plan: Sodium is 132, improving. Diuretic held 07/11. Monitor sodium in the morning (10) History of atrial fibrillation Current Visit: Yes Status: Chronic Assessment and plan: Rate controlled with Coreg. Patient is anticoagulated with Xarelto. She denies chest pain or palpitations. - Subjective Interval history: Patient was seen and assessed at bedside at 0820. He denies any headache or blurred vision. He denies abdominal pain or nausea, vomiting diarrhea. She reports decreased pain today, he denies any other complaints or needs for further pain medication. - Constitutional Vitals: Temp Pulse Resp BP Pulse Ox 98.2 F 76 16 97/61 95 07/10/17 11:43 07/10/17 11:43 07/10/17 11:43 07/10/17 11:43 07/10/17 11:43 General appearance: Present: cooperative, A&O X 3, pleasant, no acute distress, obese, answers questions appropriately - Head Head exam: Present: atraumatic, normal inspection, normocephalic - Eye Eye exam: Present: normal appearance, conjuntiva pink, sclera anicteric - Neck Neck exam general surgery: Present: supple, trachea midline. Absent: lymphadenopathy - Respiratory Respiratory exam: Present: CTAB. Absent: accessory muscle use, chest wall tenderness, rales, rhonchi, wheezes - Cardiovascular Cardiovascular exam: Present: RRR, +S1, +S2. Absent: diastolic murmur, gallop, rubs, systolic murmur - GI/Abdominal GI/Abdominal exam: Present: normal bowel sounds, soft, no peritoneal signs. Absent: distended, tenderness - Extremities Exam Extremities exam: Present: warm, radial pulses palpable and symmetrical. Absent : calf tenderness, cyanotic, pedal edema - Neurological Exam Neurological exam: Present: alert, oriented X3, no focal deficits. Absent: facial droop, speech deficit - Skin Skin exam: Present: dry, intact, normal color, warm. Absent: rash Internal Medicine: Result - Labs CBC & Chem 7: 07/10/17 03:40 07/10/17 03:40 Labs: Short CBC 07/10/17 Range/Units 03:40 WBC 9.3 (4.3-11.1) K/mcL Hgb 13.1 (12.9-16.9) g/dL Hct 38.8 (37.5-50.1) % Plt Count 204 (140-400) K/mcL Neutrophils # 5.7 (1.6-8.9) K/mcL BMP 07/10/17 03:40 Sodium 132 L Potassium 4.5 Chloride 100 Carbon Dioxide 25 BUN 25 H Creatinine 1.48 H Glucose 143 H Calcium 9.2 Liver Function 07/10/17 Range/Units 03:40 Total Bilirubin 0.8 (0.3-1.0) mg/dL AST 19 (13-39) Units/L ALT 9 (7-52) Units/L Alkaline Phosphatase 46 (34-104) Units/L Albumin 3.7 (3.5-5.7) g/dL Consult Discharge Plan - Plan [facility]errals: [facility] [Primary Care Provider] -
[2017-07-10] MEDS: Carbidopa/Levodopa 25/100 TABLET PO SCH (20:21)
[2017-07-10] MEDS: Melatonin 3 MG TABLET PO SCH (20:21)
[2017-07-10] MEDS: *HR* Morphine 2 MG/ML SYRINGE IVP PRN (20:39)
[2017-07-10] MEDS: *HR* Rivaroxaban 10 MG TABLET PO SCH (23:24)
[2017-07-11] MEDS: *HR* OxyCODONE/APAP 5/325 TABLET PO PRN (02:12)
[2017-07-11 04:15] LABS: Basophils # 0.1 K/mcL (0.0-0.2); Basophils % 0.8 %; Eosinophils # 0.4 K/mcL (0.0-0.6); Hematocrit 40.5 % (37.5-50.1); Hemoglobin 13.6 g/dL (12.9-16.9); Lymphocytes # 2.2 K/mcL (0.6-4.6); Mean Corpuscular HGB Conc 33.6 g/dL (31.6-35.5); Mean Corpuscular Hemoglobin 29.7 pg (28.0-33.3); Mean Corpuscular Volume 88.4 fL (83.0-100.0); Monocytes # 0.9 K/mcL (0.0-1.3); Monocytes % 9.4 %; Neutrophils # 5.9 K/mcL (1.6-8.9); Platelet Count 174 K/mcL (140-400); Red Blood Count 4.58 M/mcL (4.19-5.50); Red Cell Distribution Width 13.2 % (11.5-14.5); Segmented Neutrophils % 60.8 %
[2017-07-11 07:14] LABS: Alanine Aminotransferase 20 Units/L (7-52); Albumin 3.6 g/dL (3.5-5.7); Albumin/Globulin Ratio 1.3 (1.1-2.2); Alkaline Phosphatase 44 Units/L (34-104); Aspartate Amino Transferase 21 Units/L (13-39); BUN/Creatinine Ratio 16 (6-26); Bilirubin,Total 0.8 mg/dL (0.3-1.0); Blood Urea Nitrogen 20 mg/dL (8-23); Calcium 9.1 mg/dL (8.6-10.3); Carbon Dioxide 25 mEq/L (23-29); Chloride 101 mEq/L (98-107); Globulin 2.8 g/dL (2.4-3.5); Glucose 125 mg/dL (70-105); Osmolality,Calculated 282 (280-300); Potassium 4.7 mEq/L (3.5-5.1); Sodium 134 mEq/L (136-145); Total Protein 6.4 g/dL (6.4-8.9); eGFR For African Americans > 60 (> 60); eGFR For Non-African Americans 57 (> 60)
[2017-07-11] MEDS: Insulin LISPRO 300 UNITS/3 ML VIAL SQ SCH ×4 (08:08→21:35)
[2017-07-11] MEDS: FLUoxetine 20 MG CAPSULE PO SCH (08:15)
[2017-07-11] MEDS: *HR* Rivaroxaban 10 MG TABLET PO SCH (08:16)
[2017-07-11] MEDS: Gabapentin 300 MG CAPSULE PO SCH ×4 (08:16→21:34)
[2017-07-11] MEDS: *HR* Digoxin 0.125 MG TABLET PO SCH (08:16)
[2017-07-11] MEDS: Multivit/Ca/Min/Fe/FA 1 TAB TABLET PO SCH (08:16)
[2017-07-11] MEDS: traMADol 50 MG TABLET PO SCH ×3 (08:16→21:34)
[2017-07-11] MEDS: Furosemide 20 MG TABLET PO SCH (08:17)
[2017-07-11] MEDS: Aspirin Enteric Coated 81 MG Tablet PO SCH (08:17)
[2017-07-11] MEDS: Loratadine 10 MG TABLET PO SCH (08:17)
[2017-07-11] MEDS: Clindamycin 900 MG/50 ML 900 MG/50 ML IV.SOLN IVPB SCH ×3 (08:17→23:34)
--- NOTE | 2017-07-11 10:44 | Internal Med Progress Note ---
<Juanita Dobson - Last Filed: 07/11/17 11:22> Date of Encounter: 07/11/17 Time of Encounter: 08:30 - Assessment and plan (1) Cellulitis of left upper extremity Current Visit: Yes Status: Acute Assessment and plan: - Patient had biopsy of mole one week prior to admission at the [facility] to left upper arm. Patient failed outpatient treatment with amoxicillin and Bactrim. - CT of the left arm showed soft tissue swelling with no fluid collection. - Patient received 1 dose of vancomycin and Zosyn in the emergency department. Patient had multiple internal sutures removed during hospitalization - Wound culture from 07/07/17 grew MRSA. - Continue clindamycin 900 IV mg 3 times daily (since 07/08/17) and as needed pain control. - Concern of remaining sutures and developing abscess given continuous drainage and induration felt on exam. Kary surgery is consulted and appreciate evaluation and potential intervention. - Continue to monitor. (2) A-fib Current Visit: Yes Status: Chronic Assessment and plan: - Currently rate controlled with carvedilol. - Continue Xarelto for anticoagulation. Qualifiers: Atrial fibrillation type: unspecified Qualified Code(s): I48.91 - Unspecified atrial fibrillation (3) CAD (coronary artery disease) Current Visit: Yes Status: Chronic Assessment and plan: - Continue aspirin, statin, beta pili. Qualifiers: Coronary Disease-Associated Artery/Lesion type: [place] artery [place] vs. transplanted heart: [place] heart Associated angina: angina presence unspecified Qualified Code(s): I25.10 - Atherosclerotic heart disease of [place] coronary artery without angina pectoris (4) COPD (chronic obstructive pulmonary disease) Current Visit: Yes Status: Chronic Assessment and plan: - Continue Duoneb and as needed supplemental oxygen. Qualifiers: COPD type: unspecified COPD Qualified Code(s): J44.9 - Chronic obstructive pulmonary disease, unspecified (5) Diabetes Current Visit: Yes Status: Chronic Assessment and plan: - Well-controlled with latest Hgb A1c 6.7. - Continue insulin sliding scale with glucose monitoring. - Diabetic diet.. Qualifiers: Diabetes mellitus type: type 2 Diabetes mellitus complication status: with unspecified complications Diabetes mellitus long-term insulin use: without long-term use Qualified Code(s): E11.8 - Type 2 diabetes mellitus with unspecified complications (6) CKD (chronic kidney disease) stage 3, GFR 30-59 ml/min Current Visit: Yes Status: Chronic Assessment and plan: - SCr 1.60 / eGFR 43 on admission. - Continue to improve as SCr 1.25 / eGFR 57 today. - Continue hydration with IV fluid as needed. - Avoid nephrotoxins - Continue to monitor renal function and electrolytes. (7) HTN (hypertension) Current Visit: Yes Status: Chronic Assessment and plan: - BP at borderline low normal range. - Continue current antihypertensive regimen. Qualifiers: Hypertension type: essential hypertension Qualified Code(s): I10 - Essential (primary) hypertension (8) HLD (hyperlipidemia) Current Visit: Yes Status: Chronic Assessment and plan: - Continue home dose Lipitor. Qualifiers: Hyperlipidemia type: pure hypercholesterolemia Qualified Code(s): E78.00 - Pure hypercholesterolemia, unspecified; E78.0 - Pure hypercholesterolemia (9) Hyponatremia Current Visit: Yes Status: Acute Assessment and plan: - Na as low as 132 on 07/10/17. - Improves as Na 134 today. - Continue to monitor. (10) DVT prophylaxis Current Visit: Yes Status: Acute Assessment and plan: - On Xarelto. - Subjective Interval history: Patient is seen and examined this morning. Patient reports left upper arm pain improves compared to yesterday. Patient denies fever, chills, chest pain, shortness of breath, abdominal pain, diarrhea. Patient is able to move his left arm and hand without weakness nor numbness/tingling. - Constitutional Vitals: Temp Pulse Resp BP Pulse Ox 98.2 F 73 16 108/69 96 07/11/17 07:12 07/11/17 07:12 07/11/17 07:12 07/11/17 07:12 07/11/17 07:12 General appearance: Present: cooperative, A&O X 3, pleasant, no acute distress, obese, answers questions appropriately - Head Head exam: Present: normal inspection - Eye Eye exam: Present: EOMI, conjuntiva pink, sclera anicteric - Neck Neck exam general surgery: Present: supple, trachea midline - Respiratory Respiratory exam: Present: decreased breath sounds. Absent: rales, rhonchi, wheezes - Cardiovascular Cardiovascular exam: Present: RRR, +S1, +S2 - GI/Abdominal GI/Abdominal exam: Present: normal bowel sounds, soft, no peritoneal signs. Absent: tenderness - Extremities Exam Extremities exam: Present: warm. Absent: cyanotic, pedal edema Additional comments: Erythema with serosanguineous drainage and some warmth & tenderness to palpation is noted near distal portion of left upper arm. Some hardened induration is also palpable around the wound. - Neurological Exam Neurological exam: Present: alert, oriented X3, no focal deficits. Absent: facial droop, speech deficit - Skin Skin exam: Present: dry, warm Internal Medicine: Result - Labs CBC & Chem 7: 07/11/17 03:20 07/11/17 05:59 Labs: Short CBC 07/11/17 Range/Units 03:20 WBC 9.7 (4.3-11.1) K/mcL Hgb 13.6 (12.9-16.9) g/dL Hct 40.5 (37.5-50.1) % Plt Count 174 (140-400) K/mcL Neutrophils # 5.9 (1.6-8.9) K/mcL BMP 07/11/17 05:59 Sodium 134 L Potassium 4.7 Chloride 101 Carbon Dioxide 25 BUN 20 Creatinine 1.25 Glucose 125 H Calcium 9.1 Liver Function 07/11/17 Range/Units 05:59 Total Bilirubin 0.8 (0.3-1.0) mg/dL AST 21 (13-39) Units/L ALT 20 (7-52) Units/L Alkaline Phosphatase 44 (34-104) Units/L Albumin 3.6 (3.5-5.7) g/dL Consult Discharge Plan - Plan [facility]errals: [facility]Primary Care Provider[facility] - <Andrea Danielson - Last Filed: 07/11/17 18:44> Date of Encounter: 07/11/17 - Constitutional Vitals: Temp Pulse Resp BP Pulse Ox 97.7 F 75 16 105/67 94 07/11/17 15:12 07/11/17 15:12 07/11/17 15:12 07/11/17 15:12 07/11/17 15:12 Internal Medicine: Result - Labs CBC & Chem 7: 07/11/17 03:20 07/11/17 05:59 Labs: Short CBC 07/11/17 Range/Units 03:20 WBC 9.7 (4.3-11.1) K/mcL Hgb 13.6 (12.9-16.9) g/dL Hct 40.5 (37.5-50.1) % Plt Count 174 (140-400) K/mcL Neutrophils # 5.9 (1.6-8.9) K/mcL BMP 07/11/17 05:59 Sodium 134 L Potassium 4.7 Chloride 101 Carbon Dioxide 25 BUN 20 Creatinine 1.25 Glucose 125 H Calcium 9.1 Liver Function 07/11/17 Range/Units 05:59 Total Bilirubin 0.8 (0.3-1.0) mg/dL AST 21 (13-39) Units/L ALT 20 (7-52) Units/L Alkaline Phosphatase 44 (34-104) Units/L Albumin 3.6 (3.5-5.7) g/dL - Attending Attestation I conducted a face to face diagnostic evaluation of this patient and my medical decision-making was reviewed with the Resident Physician, Dr Juanita Dobson. I agree with the documented findings, disposition and treatment plan as described except to the extent set forth below: Patient reports mild tenderness in the left upper arm at the site of his prior biopsy. In evaluation his wound has minimal drainage, some underlying induration but no expressible pus. Plan continue with clindamycin and consult surgery. Andrea Danielson MD
--- NOTE | 2017-07-11 12:46 | General Surgery Consult Note ---
Date of Encounter: 07/11/17 Time of Encounter: 12:46 Assessment and Plan (1) Cellulitis of left upper extremity Current Visit: Yes Status: Acute 67M with cellulitis of LUE after recent biopsy; non septic - IV abx per primary team - US of LUE to eval for fluid collection possibly not seen on CT - will reassess for further sutures (non appreciated on my original exam) - no acute surgery History of Present Illness Consult date: 07/11/17 Reason for consult: other (left upper extremity cellulitis) History of present illness: 67M with a recent (approximately 10 days ago) biopsy of a LUE skin lesion. The pathology was benign but the patient reports infection after the procedure. He was placed on antibiotics for outpatient treatment but without resolution of symptoms cellulitis. In addition there were reports of purulent drainage. Recent CT scan (which was reviewed by me personally) did not show a fluid collection. The primary team also removed sutures from the wound. Due the drainage and cellulitis, surgery was consulted for management recommendations. Past Med Surg Social Fam HX - Past Medical History Medical history: COPD, coronary artery disease, diabetes (Pt. reports he controls his DM w/diet only. BG in ED was >160), hyperlipidemia, hypertension, renal disease Psychiatric history: no psych history - Past Surgical History Surgical History: non-contributory - Social History Smoking Status: Former smoker Packs per day: 2 PPD - Reports quitting 30 years ago Smokeless Tobacco Status: No Alcohol use: none Drug use: other - Family History Father Race: Family Member Ethnicity: Non- Living Status: Age at : 66 Cause of : Hit by a train Hx Family Cardiac Disorders: Yes (CAD, CT x3, HTN) Hx Family Neuromuscular Disorders: Yes (Parkinson's disease) Mother Race: Family Member Ethnicity: Non- Living Status: Age at : 91 Cause of : Old age Hx Family Genitourinary Disorders: Yes (Lost one kidney d/t TB as a child) Brother Race: Family Member Ethnicity: Non- Living Status: Age at : 55 Cause of : Drug overdose Hx Family Psychosocial Disorders: Yes (Drug abuse) Sister Race: Family Member Ethnicity: Non- Living Status: Still Living Hx Family Musculoskeletal Disorders: Yes (Osteoporosis) Medications and Allergies Aspirin Enteric Coated [Aspirin EC] 81 mg PO DAILY 12/22/17 [History] Carbidopa/Levodopa 25/100 [Sinemet 25/100] 1 each PO HS 07/07/17 [History] Carvedilol 12.5 mg PO BID 07/07/17 [History] Cetirizine HCl [Zyrtec] 10 mg PO DAILY 07/07/17 [History] Digoxin [Lanoxin] 0.125 mg PO DAILY 07/07/17 [History] FLUoxetine HCl [Prozac] 40 mg PO QAM 07/07/17 [History] Furosemide [Lasix] 20 mg PO DAILY 07/07/17 [History] Gabapentin [Neurontin] 600 mg PO QID 07/07/17 [History] Mag Hydrox/Al Hydrox/Simeth [Antacid Suspension] 5 ml PO TID PRN 07/07/17 [ History] Melatonin [Melatin] 9 mg PO HS 07/07/17 [History] Multivitamin [One Daily Multivitamin] 1 each PO DAILY 07/07/17 [History] Omeprazole [PriLOSEC] 20 mg PO BIDAC 07/07/17 [History] Potassium Chloride [K-Tab ER] 20 meq PO DAILY 07/07/17 [History] Rivaroxaban [Xarelto] 20 mg PO DAILY 07/07/17 [History] Spironolactone [Aldactone] 25 mg PO DAILY 07/07/17 [History] Tramadol HCl [Ultram] 50 mg PO TID 07/07/17 [History] 3 Allergy/AdvReac Type Severity Reaction Status Date / Time codeine Allergy Hives Verified 07/07/17 15:59 Opioids - Morphine Analogues Allergy Nausea Verified 07/07/17 15:59 diltiazem AdvReac Dizziness Verified 07/07/17 15:59 Review of Systems All systems PM: A 10-system review of systems was performed and is negative for pertinent findings except as documented above in the HPI. General Surgery Exam Initial Vital Signs Temp Pulse Resp BP Pulse Ox 97.4 F L 78 16 109/72 95 07/07/17 15:27 07/07/17 15:27 07/07/17 15:27 07/07/17 15:27 07/07/17 15:27 - General physical appearance well developed, well nourished, no distress - Eyes normal ocular movement - ENT normocephalic - Neck no lymphadectomy - Respiratory normal expansion, normal respiratory effort - Cardiovascular Cardiovascular exam: Present: RRR - Abdomen Abdomen general surgery: Present: soft, non tender - Incision Incision: Present: red, swollen, erythema, indurated - Integumentary Integumentary general surgery: Present: warm and dry (except around old biopsy site) - Neurologic Present: CN 2-12 grossly intact - Musculoskeletal Present: other (FROM in UE/LE bilaterally) - Psychiatric Psychiatric general surgery: Present: A&Ox3 Exam Initial Vital Signs Temp Pulse Resp BP Pulse Ox 97.4 F L 78 16 109/72 95 07/07/17 15:27 07/07/17 15:27 07/07/17 15:27 07/07/17 15:27 07/07/17 15:27 Results - Labs 07/11/17 03:20 07/11/17 05:59 Abnormal lab results Nucleated RBCs/100 WBC 0.2 /100 WBC (0) H 07/07/17 16:02 Sodium 134 mEq/L (136-145) L 07/11/17 05:59 Est GFR (Non-Af Amer) 57 (> 60) L 07/11/17 05:59 Glucose 125 mg/dL (70-105) H 07/11/17 05:59 POC Glucose 176 (58-89) H 07/10/17 20:07 Hemoglobin A1c 6.7 % (-5.6) H 07/08/17 05:14 HDL Cholesterol 34 mg/dL (40-59) L 07/08/17 08:32 Diabetes panel 07/11/17 Range/Units 05:59 Sodium 134 L (136-145) mEq/L Potassium 4.7 (3.5-5.1) mEq/L Chloride 101 (98-107) mEq/L Carbon Dioxide 25 (23-29) mEq/L BUN 20 (8-23) mg/dL Creatinine 1.25 (0.70-1.30) mg/dL Glucose 125 H (70-105) mg/dL Calcium 9.1 (8.6-10.3) mg/dL AST 21 (13-39) Units/L ALT 20 (7-52) Units/L Alkaline Phosphatase 44 (34-104) Units/L Albumin 3.6 (3.5-5.7) g/dL Calcium panel 07/11/17 Range/Units 05:59 Calcium 9.1 (8.6-10.3) mg/dL Albumin 3.6 (3.5-5.7) g/dL Pituitary panel 07/11/17 Range/Units 05:59 Sodium 134 L (136-145) mEq/L Potassium 4.7 (3.5-5.1) mEq/L Chloride 101 (98-107) mEq/L Carbon Dioxide 25 (23-29) mEq/L BUN 20 (8-23) mg/dL Creatinine 1.25 (0.70-1.30) mg/dL Glucose 125 H (70-105) mg/dL Calcium 9.1 (8.6-10.3) mg/dL Adrenal panel 07/11/17 Range/Units 05:59 Sodium 134 L (136-145) mEq/L Potassium 4.7 (3.5-5.1) mEq/L Chloride 101 (98-107) mEq/L Carbon Dioxide 25 (23-29) mEq/L BUN 20 (8-23) mg/dL Creatinine 1.25 (0.70-1.30) mg/dL Glucose 125 H (70-105) mg/dL Calcium 9.1 (8.6-10.3) mg/dL Total Bilirubin 0.8 (0.3-1.0) mg/dL AST 21 (13-39) Units/L ALT 20 (7-52) Units/L Alkaline Phosphatase 44 (34-104) Units/L Albumin 3.6 (3.5-5.7) g/dL All other labs normal. - Imaging Additional studies: CT LUE - seen and evaluated by me Consult Discharge Plan - Plan [facility]: [facility] [Primary Care Provider] -
--- NOTE | 2017-07-11 16:01 | Electrocardiograph Report ---
[address] [address] Test Date: 2017-07-08 Pat Name: Dipesh [place] Department: 113 Room: 3B Gender: M [employer] Equipment [employer]: KATE : 1950 Requested By: Andrea Danielson Order Number: [id number] Reading MD: Tien Trent MD Measurements Intervals [place] Rate: 69 P: [place]: 0 QRS: -28 QRSD: 104 T: 13 QT: 371 QTc: 391 Interpretive Statements ATRIAL FIBRILLATION WITH PVCS OR ABERRANTLY CONDUCTED COMPLEXES Electronically Signed On 07-11-2017 16:00:05 EST by Tien Trent MD
[2017-07-11] MEDS: Melatonin 3 MG TABLET PO SCH (21:34)
[2017-07-11] MEDS: Carbidopa/Levodopa 25/100 TABLET PO SCH (21:34)
[2017-07-11] MEDS: *HR* Morphine 2 MG/ML SYRINGE IVP PRN (23:34)
[2017-07-12 04:14] LABS: Basophils # 0.1 K/mcL (0.0-0.2); Basophils % 0.8 %; Eosinophils # 0.4 K/mcL (0.0-0.6); Eosinophils % 4.3 %; Hemoglobin 13.1 g/dL (12.9-16.9); Immature Granulocytes % 2.7 % (0-4); Lymphocytes # 2.2 K/mcL (0.6-4.6); Lymphocytes % 22.2 %; Mean Corpuscular HGB Conc 33.6 g/dL (31.6-35.5); Mean Corpuscular Hemoglobin 29.6 pg (28.0-33.3); Mean Corpuscular Volume 88.2 fL (83.0-100.0); Mean Platelet Volume 9.6 fL (9.4-12.4); Monocytes % 10.2 %; Neutrophils # 5.9 K/mcL (1.6-8.9); Platelet Count 215 K/mcL (140-400); Red Blood Count 4.42 M/mcL (4.19-5.50); Red Cell Distribution Width 13.2 % (11.5-14.5); Segmented Neutrophils % 59.8 %
[2017-07-12 04:32] LABS: Alanine Aminotransferase 10 Units/L (7-52); Albumin 3.6 g/dL (3.5-5.7); Albumin/Globulin Ratio 1.3 (1.1-2.2); Alkaline Phosphatase 49 Units/L (34-104); Aspartate Amino Transferase 22 Units/L (13-39); BUN/Creatinine Ratio 15 (6-26); Bilirubin,Total 0.6 mg/dL (0.3-1.0); Blood Urea Nitrogen 20 mg/dL (8-23); Calcium 9.1 mg/dL (8.6-10.3); Carbon Dioxide 28 mEq/L (23-29); Chloride 101 mEq/L (98-107); Globulin 2.7 g/dL (2.4-3.5); Glucose 119 mg/dL (70-105); Osmolality,Calculated 282 (280-300); Potassium 4.5 mEq/L (3.5-5.1); Sodium 134 mEq/L (136-145); Total Protein 6.3 g/dL (6.4-8.9); eGFR For African Americans > 60 (> 60); eGFR For Non-African Americans 54 (> 60)
[2017-07-12 07:41] VITALS: BP 118/69
[2017-07-12] MEDS: Insulin LISPRO 300 UNITS/3 ML VIAL SQ SCH ×2 (08:41→11:34)
[2017-07-12] MEDS: traMADol 50 MG TABLET PO SCH (09:04)
[2017-07-12] MEDS: FLUoxetine 20 MG CAPSULE PO SCH (09:04)
[2017-07-12] MEDS: Multivit/Ca/Min/Fe/FA 1 TAB TABLET PO SCH (09:04)
[2017-07-12] MEDS: Aspirin Enteric Coated 81 MG Tablet PO SCH (09:04)
[2017-07-12] MEDS: Spironolactone 25 MG TABLET PO SCH (09:04)
[2017-07-12] MEDS: Loratadine 10 MG TABLET PO SCH (09:04)
[2017-07-12] MEDS: Furosemide 20 MG TABLET PO SCH (09:04)
[2017-07-12] MEDS: Clindamycin 900 MG/50 ML 900 MG/50 ML IV.SOLN IVPB SCH (09:04)
[2017-07-12] MEDS: *HR* Digoxin 0.125 MG TABLET PO SCH (09:04)
[2017-07-12] MEDS: *HR* Rivaroxaban 10 MG TABLET PO SCH (09:05)
[2017-07-12] MEDS: Gabapentin 300 MG CAPSULE PO SCH (09:05)
--- NOTE | 2017-07-12 10:12 | Discharge Summary ---
<Juanita Dobson - Last Filed: 07/12/17 13:23> Date of Encounter: 07/12/17 Time of Encounter: 08:30 - Discharge Diagnosis (1) Cellulitis of left upper extremity Priority: Primary Status: Acute (2) A-fib Priority: Secondary Status: Chronic Qualifiers: Atrial fibrillation type: unspecified Qualified Code(s): I48.91 - Unspecified atrial fibrillation (3) CAD (coronary artery disease) Priority: Secondary Status: Chronic Qualifiers: Coronary Disease-Associated Artery/Lesion type: [place] artery [place] vs. transplanted heart: [place] heart Associated angina: angina presence unspecified Qualified Code(s): I25.10 - Atherosclerotic heart disease of [place] coronary artery without angina pectoris (4) COPD (chronic obstructive pulmonary disease) Priority: Secondary Status: Chronic Qualifiers: COPD type: unspecified COPD Qualified Code(s): J44.9 - Chronic obstructive pulmonary disease, unspecified (5) Diabetes Priority: Secondary Status: Chronic Qualifiers: Diabetes mellitus type: type 2 Diabetes mellitus complication status: with unspecified complications Diabetes mellitus long-term insulin use: without long-term use Qualified Code(s): E11.8 - Type 2 diabetes mellitus with unspecified complications (6) CKD (chronic kidney disease) stage 3, GFR 30-59 ml/min Priority: Secondary Status: Chronic (7) HTN (hypertension) Priority: Secondary Status: Chronic Qualifiers: Hypertension type: essential hypertension Qualified Code(s): I10 - Essential (primary) hypertension (8) HLD (hyperlipidemia) Priority: Secondary Status: Chronic Qualifiers: Hyperlipidemia type: pure hypercholesterolemia Qualified Code(s): E78.00 - Pure hypercholesterolemia, unspecified; E78.0 - Pure hypercholesterolemia (9) Hyponatremia Priority: Secondary Status: Acute - Discharge Medications Prescriptions: Atorvastatin [Lipitor] 20 mg PO HS #60 tablet Doxycycline 100 mg PO BID #20 capsule Home Medications: Aspirin Enteric Coated [Aspirin EC] 81 mg PO DAILY 07/07/17 [History] Carbidopa/Levodopa 25/100 [Sinemet 25/100] 1 each PO HS 07/07/17 [History] Carvedilol 12.5 mg PO BID 07/07/17 [History] Cetirizine HCl [Zyrtec] 10 mg PO DAILY 07/07/17 [History] Digoxin [Lanoxin] 0.125 mg PO DAILY 07/07/17 [History] FLUoxetine HCl [Prozac] 40 mg PO QAM 07/07/17 [History] Furosemide [Lasix] 20 mg PO DAILY 07/07/17 [History] Gabapentin [Neurontin] 600 mg PO QID 07/07/17 [History] Mag Hydrox/Al Hydrox/Simeth [Antacid Suspension] 5 ml PO TID PRN 07/07/17 [ History] Melatonin [Melatin] 9 mg PO HS 07/07/17 [History] Multivitamin [One Daily Multivitamin] 1 each PO DAILY 07/07/17 [History] Omeprazole [PriLOSEC] 20 mg PO BIDAC 07/07/17 [History] Potassium Chloride [K-Tab ER] 20 meq PO DAILY 07/07/17 [History] Rivaroxaban [Xarelto] 20 mg PO DAILY 07/07/17 [History] Spironolactone [Aldactone] 25 mg PO DAILY 07/07/17 [History] Tramadol HCl [Ultram] 50 mg PO TID 07/07/17 [History] Atorvastatin [Lipitor] 20 mg PO HS #60 tablet 07/12/17 [Rx] Doxycycline 100 mg PO BID #20 capsule 07/12/17 [Rx] Allergies/Adverse Reactions: 3 Allergy/AdvReac Type Severity Reaction Status Date / Time codeine Allergy Hives Verified 07/07/17 15:59 Opioids - Morphine Analogues Allergy Nausea Verified 07/07/17 15:59 diltiazem AdvReac Dizziness Verified 07/07/17 15:59 Procedures/tests Complete & Pending: Procedures Performed prior 72 hours Category Date Time Status US extremity nonvascular LT [US] Routine Exams 07/11/17 18:00 Draft Date of admission: 07/07/17 17:08 [facility] Consults: 07/07/17 21:06 Consult to Plant Pathologist [CONS] Routine Reason for SW Consult: Please assess patient for possible home needs for post -discharge planning. 07/07/17 21:09 Consult to Wound Care [CONS] Routine Reason for Consult: Patient had biopsy on left upper arm 1 week ago and site is now infected, erythematous, and edematous. Please make recommendations for daily wound care. Call Completed: No 07/07/17 22:56 Consult to Roll Off Driver [CONS] Routine Comment: Reason for Consult: Patient requires education regarding current hyperglycemia. A1c ordered in a.m. labs. Pts. BG on admission was 162. Pt. has additional risk factors of CAD, HTN, HLD, and CKD stage 3. 07/11/17 10:01 Consult to Surgery [CONS] Routine Consulting Provider: [facility] Reason for Consult: Left upper arm cellulitis/induration after a mole removal surgery one week prior to admission. Found to have an residual suture yesterday. Still having some drainage and erythema. Appreciare further evaluation and possible intervention. Call Completed: Yes Discharging clinician: Juanita Dobson Anticipated date of discharge: 07/12/17 - Patient Status Disposition: Home, Self-Care Condition: Fair Functional capacity at discharge: independent ambulation Overall status at discharge: patient is progressing back to baseline - Discharge Instructions Instructions: Doxycycline (By mouth), Atorvastatin (By mouth), Methicillin Resistant Staphylococcus Aureus (DC), Cellulitis (DC), Acute Wound Care (DC), Acute Wound Care (GEN) Follow Up With: [facility],PCP [Primary Care Provider] - 07/18/17 2:30 pm Additional Instructions: Please take doxycycline 100 mg by mouth twice a day for 10 more days for finish treatment for MRSA cellulitis. For the local wound care, please cleanse with soap and water and pat dry, apply dry dressing and tape to secure daily Please follow up with your primary care physician at [facility] on 07/18/17. - Diet and Activity Activity: increase activity as tolerated Diet: diabetic diet, low fat, low cholesterol, low salt diet Hospital course: Mr. Roberts is a 67 year old male with PMH of COPD, CAD, DM, atrial fibrillation on Xarelto, HLD, HTN, and renal disease who was sent from [facility] for left upper arm pain and swelling. Patient had a mole removal procedure 7 days prior to admission and the left upper arm pain started two days after. Patient failed outpatient amoxicillin and Bactrim treatment. CT left upper extremity in ED found soft tissue swelling within the subcutaneous fat of the forearm, especially at the olecranon, concernin of phlegmon but no focal fluid collection noted. Patient was admitted on 07/07/17 for left upper arm cellulitis and had 8 sutures removed from the site. Patient was initially started on IV vancomycin and Zosyn but then switched to clindamycin 900 mg IV TID as the wound culture grew MRSA (sensitive to clindamycin, daptomycin, doxycycline, gentamicin, linezoid, tetracycline, Bactrim and vancomycin). Surgery was consulted on 07/11/17 for the concern of remaining sutures and developing abscess given continuous drainage and induration felt on exam. Left upper extremity US found focal hypoechoic area measuring 9 x 8 mm which extends to near the dermis along the distal upper arm, which could represent a small phlegmon or hematoma but no drainable fluid identified. Per general surgery, no surgical intervention is indicated at this time. Given patient's left upper arm cellulitis continues to improve and remains hemodynamically stable, patient can be discharged home with doxycycline 100 mg by mouth twice a day for 10 more days for finish treatment for MRSA cellulitis. For the local wound care, patient is instructed to cleanse with soap and water and pat dry, apply dry dressing and tape to secure daily. Patient will have follow-up appointment with his primary care physician at [facility] on 07/18/17. Patient expressed his understanding and agreement with the discharge plan. All questions were answered. - Time Spent with Patient Total time spent providing and/or coordinating discharge services: Greater than 30 minutes (45 minutes) - Constitutional Vitals: Temp Pulse Resp BP Pulse Ox 97.8 F 66 18 118/69 94 07/12/17 07:00 07/12/17 07:00 07/12/17 07:00 07/12/17 07:00 07/12/17 07:00 General appearance: Present: cooperative, A&O X 3, pleasant, no acute distress, obese, answers questions appropriately - Head Head exam: Present: normal inspection - Eye Eye exam: Present: EOMI, conjuntiva pink, sclera anicteric - Neck Neck exam general surgery: Present: supple, trachea midline - Respiratory Respiratory exam: Present: decreased breath sounds. Absent: accessory muscle use, rales, rhonchi, wheezes - Cardiovascular Cardiovascular exam: Present: RRR, +S1, +S2 - GI/Abdominal GI/Abdominal exam: Present: normal bowel sounds, soft, no peritoneal signs. Absent: tenderness - Extremities Exam Extremities exam: Present: warm. Absent: cyanotic Additional comments: Erythema with serosanguineous drainage and some warmth & tenderness to palpation is noted near distal portion of left upper arm. Some hardened induration is also palpable around the wound. Appears to better compared to yesterday. - Neurological Exam Neurological exam: Present: alert, oriented X3, no focal deficits. Absent: facial droop, speech deficit - Skin Skin exam: Present: dry, warm <Bryan Danielsonvan - Last Filed: 07/12/17 18:05> Date of Encounter: 07/12/17 Procedures/tests Complete & Pending: Procedures Performed prior 72 hours Category Date Time Status US extremity nonvascular LT [US] Routine Exams 07/11/17 18:00 Draft Date of admission: 07/07/17 17:08 [facility] Consults: 07/07/17 21:06 Consult to Plant Pathologist [CONS] Routine Reason for SW Consult: Please assess patient for possible home needs for post -discharge planning. 07/07/17 21:09 Consult to Wound Care [CONS] Routine Reason for Consult: Patient had biopsy on left upper arm 1 week ago and site is now infected, erythematous, and edematous. Please make recommendations for daily wound care. Call Completed: No 07/07/17 22:56 Consult to Roll Off Driver [CONS] Routine Comment: Reason for Consult: Patient requires education regarding current hyperglycemia. A1c ordered in a.m. labs. Pts. BG on admission was 162. Pt. has additional risk factors of CAD, HTN, HLD, and CKD stage 3. 07/11/17 10:01 Consult to Surgery [CONS] Routine Consulting Provider: [facility] Reason for Consult: Left upper arm cellulitis/induration after a mole removal surgery one week prior to admission. Found to have an residual suture yesterday. Still having some drainage and erythema. Appreciare further evaluation and possible intervention. Call Completed: Yes Hospital course: Mr. Roberts is a 67 year old male - Time Spent with Patient Total time spent providing and/or coordinating discharge services: - Constitutional Vitals: Temp Pulse Resp BP Pulse Ox 97.8 F 66 18 118/69 94 07/12/17 07:00 07/12/17 07:00 07/12/17 07:00 07/12/17 07:00 07/12/17 07:00 - Attending Attestation I conducted a face to face diagnostic evaluation of this patient and my medical decision-making was reviewed with the Resident Physician, Dr Juanita Dobson. I agree with the documented findings, disposition and treatment plan as described except to the extent set forth below: Patient left upper extremity wound appears to be healing. There is no surrounding erythema, no drainage or bleeding. I appreciate general surgery recommendations. We will switch to oral antibiotics and discharge home. Ad[facility]. Andrea Danielson MD
--- NOTE | 2017-07-12 10:39 | General Surgery Progress Note ---
<Nolvia Lazo Fernando - Last Filed: 07/12/17 10:37> Date of Encounter: 07/12/17 Time of Encounter: 10:15 - Assessment and Plan (1) Cellulitis of left upper extremity Current Visit: Yes Status: Acute No drainable fluid collection by ultrasound Local wound care- cleanse with soap and water and pat dry, apply dry dressing and tape to secure daily May transition to PO antibiotics F/U with surgery prn Surgery will sign off at this time, no intervention indicated. Thank you for allowing us to participate in the care of this patient. Subjective Patient reports: no new complaints, feels better, still having pain, pain is less, afebrile Objective Vital Signs - Last 8 Hours Temp Pulse Resp BP Pulse Ox 07/12/17 07:00 97.8 F 66 18 118/69 94 07/12/17 03:22 97.6 F 63 18 114/78 96 Intake and Output 07/11/17 07/12/17 07/12/17 23:59 07:59 15:59 Intake Total 410 / 410 50 / 50 440 / 440 Balance 410 / 410 50 / 50 440 / 440 Intake: IV Fluids 50 / 50 50 / 50 Cleocin Premix 900 MG/50 ML 900 50 / 50 50 / 50 mg In 50 ml @ 50 mls/hr IVPB Q8HR [facility] Rx#:[id number] Oral 360 / 360 440 / 440 Other: Meal Dinner Breakfast Percent of Meal Consumed 95% 100% Weight 114.986 kg Blood Glucose* 244 116 Patient Weight 07/12/17 23:59 Weight 114.986 kg - General physical appearance well developed, well nourished, no distress - Eyes normal ocular movement - ENT normal mucosa, atraumatic, normocephalic - Neck Neck exam: trachea midline - Respiratory normal respiratory effort - Abdomen Abdomen: Present: soft, non tender - Incision Incision: Present: open (LUQ wound open superficially with small amount of serous drainage, mild erythema and induration (improved), mildly tender to palpation) - Integumentary other (See LUE above) - Neurologic CN 2-12 grossly intact - Psychiatric oriented to time, oriented to person, oriented to place, speech is normal, memory intact - Labs 07/12/17 03:15 07/12/17 03:15 Diabetes panel 07/12/17 Range/Units 03:15 Sodium 134 L (136-145) mEq/L Potassium 4.5 (3.5-5.1) mEq/L Chloride 101 (98-107) mEq/L Carbon Dioxide 28 (23-29) mEq/L BUN 20 (8-23) mg/dL Creatinine 1.31 H (0.70-1.30) mg/dL Glucose 119 H (70-105) mg/dL Calcium 9.1 (8.6-10.3) mg/dL AST 22 (13-39) Units/L ALT 10 (7-52) Units/L Alkaline Phosphatase 49 (34-104) Units/L Albumin 3.6 (3.5-5.7) g/dL Calcium panel 07/12/17 Range/Units 03:15 Calcium 9.1 (8.6-10.3) mg/dL Albumin 3.6 (3.5-5.7) g/dL Pituitary panel 07/12/17 Range/Units 03:15 Sodium 134 L (136-145) mEq/L Potassium 4.5 (3.5-5.1) mEq/L Chloride 101 (98-107) mEq/L Carbon Dioxide 28 (23-29) mEq/L BUN 20 (8-23) mg/dL Creatinine 1.31 H (0.70-1.30) mg/dL Glucose 119 H (70-105) mg/dL Calcium 9.1 (8.6-10.3) mg/dL Adrenal panel 07/12/17 Range/Units 03:15 Sodium 134 L (136-145) mEq/L Potassium 4.5 (3.5-5.1) mEq/L Chloride 101 (98-107) mEq/L Carbon Dioxide 28 (23-29) mEq/L BUN 20 (8-23) mg/dL Creatinine 1.31 H (0.70-1.30) mg/dL Glucose 119 H (70-105) mg/dL Calcium 9.1 (8.6-10.3) mg/dL Total Bilirubin 0.6 (0.3-1.0) mg/dL AST 22 (13-39) Units/L ALT 10 (7-52) Units/L Alkaline Phosphatase 49 (34-104) Units/L Albumin 3.6 (3.5-5.7) g/dL - Imaging Additional Studies: Upper Extremity CT 07/07/17 16:31 IMPRESSION: 1. There is soft tissue swelling within the subcutaneous fat of the forearm, especially at the olecranon. Given the heterogeneous enhancement, phlegmon is considered most likely. A focal fluid collection is not identified. 2. Focal spot the dural irregularity more proximally and laterally at the level the distal humerus presumably represents the biopsy site. Again, there is soft tissue stranding deep to that, but no focal fluid collection is identified. D/ / Kody Rodgers MD / Kody Rodgers MD Interpreting Provider: Kody Rodgers MD Extremity Ultrasound 07/11/17 18:00 IMPRESSION: Focal hypoechoic area measuring 9 x 8 mm which extends to near the dermis along the distal upper arm, which could represent a small phlegmon or hematoma. No definite drainable fluid identified. Extensive adjacent soft tissue edema is present, which could be related to cellulitis. D/ / 07/11/2017 18:48:02 David Dubon MD / patricia Interpreting Provider: David Dubon MD Consult Discharge Plan - Plan Instructions: Doxycycline (By mouth), Atorvastatin (By mouth), Methicillin Resistant Staphylococcus Aureus (DC), Cellulitis (DC), Acute Wound Care (DC), Acute Wound Care (GEN) Additional Instructions: Please take doxycycline 100 mg by mouth twice a day for 10 more days for finish treatment for MRSA cellulitis. Please follow up with your primary care physician at [facility] on 07/18/16. Referrals: [facility],PCP [Primary Care Provider] - 07/18/17 2:30 pm Prescriptions: Atorvastatin [Lipitor] 20 mg PO HS #60 tablet Doxycycline 100 mg PO BID #20 capsule - Attending Attestation For this encounter, I have reviewed the CLERK TELEVISION [employer]ODUCTION or PA documentation, treatment plan, and medical decision making; and I have had face to face time with this patient. <Ashok Miller - Last Filed: 07/12/17 13:12> Date of Encounter: 07/12/17 - Assessment and Plan (1) Cellulitis of left upper extremity Current Visit: Yes Status: Acute Objective Vital Signs - Last 8 Hours Temp Pulse Resp BP Pulse Ox 07/12/17 07:00 97.8 F 66 18 118/69 94 Intake and Output 07/11/17 07/12/17 07/12/17 23:59 07:59 15:59 Intake Total 410 / 410 50 / 50 440 / 440 Balance 410 / 410 50 / 50 440 / 440 Intake: IV Fluids 50 / 50 50 / 50 Cleocin Premix 900 MG/50 ML 900 50 / 50 50 / 50 mg In 50 ml @ 50 mls/hr IVPB Q8HR [facility] Rx#:[id number] Oral 360 / 360 440 / 440 Other: Meal Dinner Breakfast Percent of Meal Consumed 95% 100% Weight 114.986 kg Blood Glucose* 244 116 150 Patient Weight 07/12/17 23:59 Weight 114.986 kg - Labs 07/12/17 03:15 07/12/17 03:15 Diabetes panel 07/12/17 Range/Units 03:15 Sodium 134 L (136-145) mEq/L Potassium 4.5 (3.5-5.1) mEq/L Chloride 101 (98-107) mEq/L Carbon Dioxide 28 (23-29) mEq/L BUN 20 (8-23) mg/dL Creatinine 1.31 H (0.70-1.30) mg/dL Glucose 119 H (70-105) mg/dL Calcium 9.1 (8.6-10.3) mg/dL AST 22 (13-39) Units/L ALT 10 (7-52) Units/L Alkaline Phosphatase 49 (34-104) Units/L Albumin 3.6 (3.5-5.7) g/dL Calcium panel 07/12/17 Range/Units 03:15 Calcium 9.1 (8.6-10.3) mg/dL Albumin 3.6 (3.5-5.7) g/dL Pituitary panel 07/12/17 Range/Units 03:15 Sodium 134 L (136-145) mEq/L Potassium 4.5 (3.5-5.1) mEq/L Chloride 101 (98-107) mEq/L Carbon Dioxide 28 (23-29) mEq/L BUN 20 (8-23) mg/dL Creatinine 1.31 H (0.70-1.30) mg/dL Glucose 119 H (70-105) mg/dL Calcium 9.1 (8.6-10.3) mg/dL Adrenal panel 07/12/17 Range/Units 03:15 Sodium 134 L (136-145) mEq/L Potassium 4.5 (3.5-5.1) mEq/L Chloride 101 (98-107) mEq/L Carbon Dioxide 28 (23-29) mEq/L BUN 20 (8-23) mg/dL Creatinine 1.31 H (0.70-1.30) mg/dL Glucose 119 H (70-105) mg/dL Calcium 9.1 (8.6-10.3) mg/dL Total Bilirubin 0.6 (0.3-1.0) mg/dL AST 22 (13-39) Units/L ALT 10 (7-52) Units/L Alkaline Phosphatase 49 (34-104) Units/L Albumin 3.6 (3.5-5.7) g/dL - Attending Attestation I have personally seen and examined the patient. I have reviewed pertinent labs , imaging, progress notes, including this one. I agree with the above assessment and plan.
== END 2017-07-12 15:02 | disposition home or self-care (01) | DRG 863 ==
LOC: EMEROO 15:25 → 3ANU 17:08 → SUATTDRO 17:08 → 3BNU 17:25
PROVIDERS: ADMIT Nurse Practitioner Family; ATTEND Internal Medicine

== ENCOUNTER 2018-08-20 22:45 | Observation (INO) ==
[2018-08-20] MEDS ORDERED: 0.9 % Sodium Chloride 1,000 ML IVC ONE (22:57)
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
[2018-08-20 23:19] LABS: Basophils % 0.2 %; Eosinophils # 0.1 K/mcL (0.0-0.6); Eosinophils % 0.3 %; Hematocrit 37.6 % (37.5-50.1); Immature Granulocytes % 1.2 % (0-4); Lymphocytes # 0.8 K/mcL (0.6-4.6); Lymphocytes % 4.3 %; Mean Corpuscular HGB Conc 34.6 g/dL (31.6-35.5); Mean Corpuscular Volume 86.8 fL (83.0-100.0); Mean Platelet Volume 9.2 fL (9.4-12.4); Monocytes % 5.3 %; Neutrophils # 16.8 K/mcL (1.6-8.9); Platelet Count 208 K/mcL (140-400); Red Blood Count 4.33 M/mcL (4.19-5.50); Segmented Neutrophils % 88.7 %
[2018-08-20 23:20] LABS: Bilirubin,Urine Negative (Negative); Blood,Urine Trace (Negative); Clarity,Urine Cloudy (Clear); Color,Urine Yellow (Yellow); Glucose,Urine (UA) Normal (Normal); Ketones,Urine Negative (Negative); Leukocyte Esterase,Urine Large (Negative); Nitrite,Urine Positive (Negative); PH,Urine 7.5 pH Units (5.0-8.0); Protein,Urine Trace mg/dL (Neg-Trace); Specific Gravity,Urine 1.012 (1.010-1.025); Urobilinogen,Urine Normal (Normal)
[2018-08-20 23:33] LABS: Bacteria,Urine Many per hpf (None-Few); Hyaline Casts,Urine None Seen per lpf (None-Few); Squamous Epithelial Cell,Urine Moderate per lpf (None-Few); WBC,Urine TNTC per hpf (0-3)
[2018-08-20 23:35] LABS: INR 1.4; Prothrombin Time 15.6 Seconds (9.4-12.1)
[2018-08-20] MEDS ORDERED: cefTRIAXone 1,000 MG in Water for inj. (sterile) 20 ML 10 ML IVP ONE (23:35)
[2018-08-20 23:41] LABS: Troponin I < 0.03 ng/mL (< 0.04)
[2018-08-21 00:18] LABS: Alanine Aminotransferase 25 Units/L (7-52); Albumin 3.8 g/dL (3.5-5.7); Albumin/Globulin Ratio 1.2 (1.1-2.2); Alkaline Phosphatase 53 Units/L (34-104); Aspartate Amino Transferase 23 Units/L (13-39); BUN/Creatinine Ratio 17 (6-26); Bilirubin,Direct 0.3 mg/dL (0.0-0.2); Bilirubin,Indirect 1.3 mg/dL (0.0-1.2); Bilirubin,Total 1.6 mg/dL (0.3-1.0); Blood Urea Nitrogen 19 mg/dL (8-23); Calcium 9.1 mg/dL (8.6-10.3); Carbon Dioxide 22 mEq/L (23-29); Chloride 97 mEq/L (98-107); Globulin 3.2 g/dL (2.4-3.5); Glucose 181 mg/dL (70-105); Lipase 35 Units/L (11-82); Osmolality,Calculated 281 (280-300); Potassium 4.7 mEq/L (3.5-5.1); Sodium 132 mEq/L (136-145); eGFR For Non-African Americans > 60 (> 60)
[2018-08-21 02:35] LABS: Digoxin 0.7 ng/mL (0.8-2.0)
[2018-08-21] MEDS ORDERED: Naloxone 0.4 MG/ML INJ IVP PRN (03:40)
[2018-08-21] MEDS ORDERED: D5% in Water 1,000 ML IVC PRN (04:01)
[2018-08-21] MEDS ORDERED: *HR* Dextrose 50 % in Water (Syg) 50 ML SYRINGE IVP PRN (04:01)
[2018-08-21] MEDS ORDERED: Dextrose Gel 15 GM/37.5 ML TUBE PO PRN ×2 (04:01)
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
[2018-08-21] MEDS ORDERED: 0.9 % Sodium Chloride 1,000 ML IVC SCH (04:30)
[2018-08-21] MEDS: Insulin LISPRO 300 UNITS/3 ML VIAL SQ SCH ×4 (07:23→17:48)
--- NOTE | 2018-08-21 08:08 | Event Note ---
Date of Encounter: 08/21/18 Time of Encounter: 11:00 Patient seen and evaluated by solution advisor earlier this morning and also by casey thomson. Briefly, patient is a 68-year-old male who presents due to generalized fatigue with dysuria and frequency found to have urinalysis concerning for UTI in addition to leukocytosis. Urinary cultures pending Will continue IV ceftriaxone started in the ER.
[2018-08-21] MEDS ORDERED: cefTRIAXone 1,000 MG in Water for inj. (sterile) 20 ML 10 ML IVPB SCH (09:00)
[2018-08-21 11:17] LABS: Basophils # 0.1 K/mcL (0.0-0.2); Basophils % 0.3 %; Eosinophils # 0.1 K/mcL (0.0-0.6); Eosinophils % 0.3 %; Hematocrit 37.1 % (37.5-50.1); Hemoglobin 12.4 g/dL (12.9-16.9); Lymphocytes # 1.8 K/mcL (0.6-4.6); Lymphocytes % 10.4 %; Mean Corpuscular HGB Conc 33.4 g/dL (31.6-35.5); Mean Corpuscular Hemoglobin 30.1 pg (28.0-33.3); Mean Platelet Volume 9.5 fL (9.4-12.4); Monocytes # 1.5 K/mcL (0.0-1.3); Monocytes % 8.6 %; Neutrophils # 13.7 K/mcL (1.6-8.9); Platelet Count 201 K/mcL (140-400); Red Blood Count 4.12 M/mcL (4.19-5.50); Red Cell Distribution Width 13.1 % (11.5-14.5); Segmented Neutrophils % 79.4 %
[2018-08-21 11:32] LABS: Alanine Aminotransferase 22 Units/L (7-52); Albumin 3.7 g/dL (3.5-5.7); Albumin/Globulin Ratio 1.2 (1.1-2.2); Alkaline Phosphatase 50 Units/L (34-104); Aspartate Amino Transferase 17 Units/L (13-39); BUN/Creatinine Ratio 15 (6-26); Bilirubin,Total 1.4 mg/dL (0.3-1.0); Blood Urea Nitrogen 17 mg/dL (8-23); Calcium 8.9 mg/dL (8.6-10.3); Carbon Dioxide 25 mEq/L (23-29); Chloride 101 mEq/L (98-107); Glucose 153 mg/dL (70-105); Osmolality,Calculated 281 (280-300); Potassium 4.2 mEq/L (3.5-5.1); Sodium 133 mEq/L (136-145); Total Protein 6.7 g/dL (6.4-8.9); eGFR For Non-African Americans > 60 (> 60)
[2018-08-21] MEDS: cefTRIAXone 1,000 MG in Water for inj. (sterile) 20 ML 10 ML IVPB SCH (12:30)
[2018-08-21] MEDS ORDERED: Ipratropium/Albuterol Neb 3 ML IH PRN (13:04)
[2018-08-21] MEDS: Aspirin Enteric Coated 81 MG Tablet PO SCH (14:10)
[2018-08-21] MEDS: *HR* Digoxin 0.125 MG TABLET PO SCH (14:11)
[2018-08-21] MEDS: Gabapentin 400 MG CAPSULE PO SCH ×3 (14:11→20:39)
[2018-08-21] MEDS: Furosemide 40 MG TABLET PO SCH (14:11)
[2018-08-21] MEDS: Saxagliptin Hcl [Onglyza] 5 MG PO SCH (14:11)
[2018-08-21] MEDS: Loratadine 10 MG TABLET PO SCH (14:11)
[2018-08-21] MEDS: Spironolactone 25 MG TABLET PO SCH (14:11)
[2018-08-21] MEDS: FLUoxetine 20 MG CAPSULE PO SCH (14:11)
[2018-08-21] MEDS: *HR* Rivaroxaban 10 MG TABLET PO SCH (17:49)
[2018-08-21] MEDS: Cholecalciferol (D-3) 1,000 UNIT TABLET PO SCH (17:49)
[2018-08-21] MEDS: Carbidopa/Levodopa 25/100 TABLET PO SCH (20:38)
[2018-08-21] MEDS: Melatonin 3 MG TABLET PO SCH (20:38)
[2018-08-21] MEDS: traMADol 50 MG TABLET PO PRN (20:39)
[2018-08-21] MEDS: Insulin DETEMIR 100 UNIT/ML X5UNITS SQ SCH (21:43)
--- NOTE | 2018-08-21 23:42 | Electrocardiograph Report ---
[address] [place], [place] [address] Test Date: 2018-08-20 Pat Name: Dipesh Méndezman Department: [id number] Room: [facility] Gender: M Tray Worker: : 1950 Requested By: Adam Auguste Order Number: [id number] Reading MD: Nolvia Ram Measurements Intervals [place] Rate: 99 P: [place]: QRS: -87 QRSD: 104 T: 33 QT: 332 QTc: 426 Interpretive Statements Atrial fibrillation Left anterior fascicular block Electronically Signed On 08-21-2018 23:40:32 EST by Nolvia Ram
[2018-08-22] MEDS: Insulin LISPRO 300 UNITS/3 ML VIAL SQ SCH ×3 (08:47→12:35)
[2018-08-22] MEDS: Loratadine 10 MG TABLET PO SCH (09:18)
[2018-08-22] MEDS: Furosemide 40 MG TABLET PO SCH (09:18)
[2018-08-22] MEDS: FLUoxetine 20 MG CAPSULE PO SCH (09:18)
[2018-08-22] MEDS: Gabapentin 400 MG CAPSULE PO SCH ×4 (09:19→22:06)
[2018-08-22] MEDS: Aspirin Enteric Coated 81 MG Tablet PO SCH (09:19)
[2018-08-22] MEDS: *HR* Digoxin 0.125 MG TABLET PO SCH (09:19)
[2018-08-22] MEDS: Saxagliptin Hcl [Onglyza] 5 MG PO SCH (09:20)
[2018-08-22] MEDS: traMADol 50 MG TABLET PO PRN ×2 (09:23→22:07)
[2018-08-22] MEDS: Spironolactone 25 MG TABLET PO SCH (09:24)
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
[2018-08-22] MEDS: cefTRIAXone 1,000 MG in Water for inj. (sterile) 20 ML 10 ML IVPB SCH (12:34)
[2018-08-22 12:48] LABS: Basophils # 0.1 K/mcL (0.0-0.2); Basophils % 0.5 %; Eosinophils # 0.2 K/mcL (0.0-0.6); Eosinophils % 1.2 %; Hematocrit 36.7 % (37.5-50.1); Hemoglobin 12.5 g/dL (12.9-16.9); Immature Granulocytes % 2.2 % (0-4); Lymphocytes # 1.4 K/mcL (0.6-4.6); Mean Corpuscular HGB Conc 34.1 g/dL (31.6-35.5); Mean Corpuscular Hemoglobin 30.3 pg (28.0-33.3); Mean Corpuscular Volume 89.1 fL (83.0-100.0); Mean Platelet Volume 9.3 fL (9.4-12.4); Monocytes # 1.3 K/mcL (0.0-1.3); Monocytes % 9.7 %; Neutrophils # 9.7 K/mcL (1.6-8.9); Platelet Count 198 K/mcL (140-400); Red Blood Count 4.12 M/mcL (4.19-5.50); Red Cell Distribution Width 13.3 % (11.5-14.5); Segmented Neutrophils % 75.4 %
[2018-08-22 13:09] LABS: BUN/Creatinine Ratio 17 (6-26); Blood Urea Nitrogen 19 mg/dL (8-23); Calcium 9.1 mg/dL (8.6-10.3); Carbon Dioxide 25 mEq/L (23-29); Chloride 101 mEq/L (98-107); Glucose 172 mg/dL (70-105); Osmolality,Calculated 284 (280-300); Potassium 4.3 mEq/L (3.5-5.1); Sodium 134 mEq/L (136-145); eGFR For Non-African Americans > 60 (> 60)
[2018-08-22] MEDS: *HR* Rivaroxaban 10 MG TABLET PO SCH (18:51)
[2018-08-22] MEDS: Cholecalciferol (D-3) 1,000 UNIT TABLET PO SCH (18:51)
[2018-08-22] MEDS: Melatonin 3 MG TABLET PO SCH (22:04)
[2018-08-22] MEDS: Carbidopa/Levodopa 25/100 TABLET PO SCH (22:07)
[2018-08-22] MEDS: Insulin DETEMIR 100 UNIT/ML X5UNITS SQ SCH (22:08)
[2018-08-23] MEDS: Insulin LISPRO 300 UNITS/3 ML VIAL SQ SCH ×2 (08:03→11:50)
[2018-08-23] MEDS: Gabapentin 400 MG CAPSULE PO SCH ×2 (08:06→11:48)
[2018-08-23] MEDS: Furosemide 40 MG TABLET PO SCH (08:07)
[2018-08-23] MEDS: *HR* Digoxin 0.125 MG TABLET PO SCH (08:07)
[2018-08-23] MEDS: FLUoxetine 20 MG CAPSULE PO SCH (08:07)
[2018-08-23] MEDS: Loratadine 10 MG TABLET PO SCH (08:07)
[2018-08-23] MEDS: Saxagliptin Hcl [Onglyza] 5 MG PO SCH (08:08)
[2018-08-23] MEDS: Spironolactone 25 MG TABLET PO SCH (08:11)
[2018-08-23] MEDS: Aspirin Enteric Coated 81 MG Tablet PO SCH (08:11)
[2018-08-23] MEDS: cefTRIAXone 1,000 MG in Water for inj. (sterile) 20 ML 10 ML IVPB SCH (11:47)
[2018-08-23 12:32] LABS: BUN/Creatinine Ratio 18 (6-26); Blood Urea Nitrogen 22 mg/dL (8-23); Calcium 9.5 mg/dL (8.6-10.3); Carbon Dioxide 28 mEq/L (23-29); Chloride 99 mEq/L (98-107); Glucose 167 mg/dL (70-105); Osmolality,Calculated 285 (280-300); Potassium 4.3 mEq/L (3.5-5.1); Sodium 134 mEq/L (136-145); eGFR For Non-African Americans 60 (> 60)
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
[2018-08-23 15:30] VITALS: BP 106/61
[2018-08-23 15:36] LABS: Basophils # 0.1 K/mcL (0.0-0.2); Basophils % 0.6 %; Eosinophils # 0.3 K/mcL (0.0-0.6); Eosinophils % 2.4 %; Hematocrit 39.1 % (37.5-50.1); Hemoglobin 13.2 g/dL (12.9-16.9); Immature Granulocytes % 2.2 % (0-4); Lymphocytes % 17.1 %; Mean Corpuscular HGB Conc 33.8 g/dL (31.6-35.5); Mean Corpuscular Hemoglobin 30.3 pg (28.0-33.3); Mean Corpuscular Volume 89.7 fL (83.0-100.0); Mean Platelet Volume 9.8 fL (9.4-12.4); Monocytes # 1.1 K/mcL (0.0-1.3); Monocytes % 9.5 %; Platelet Count 232 K/mcL (140-400); Red Blood Count 4.36 M/mcL (4.19-5.50); Red Cell Distribution Width 13.3 % (11.5-14.5); Segmented Neutrophils % 68.2 %
--- NOTE | 2018-08-23 16:48 | Physician Discharge Referral ---
Home Health/Hosp Referral Info Transfer to: Home Health - Diagnosis (1) Complicated UTI (urinary tract infection) Status: Acute (2) General weakness Status: Acute (3) COPD (chronic obstructive pulmonary disease) Status: Chronic (4) CAD (coronary artery disease) Status: Chronic (5) Diabetes Status: Chronic (6) CKD (chronic kidney disease) stage 3, GFR 30-59 ml/min Status: Chronic (7) A-fib Status: Chronic - Respiratory Orders Smoking Cessation: Smoking cessation has been advised. For more information, call the [place] Tobacco Quit Line at 2-516-PHSB-NOW. - Services Needed Following services are medically necessary services: Nursing, Physical Therapy, Occupational Therapy - Transfer Medications Prescriptions: Ciprofloxacin HCl [Cipro] 500 mg PO BID 4 Days #8 tablet Home Medications: Aspirin Enteric Coated [Aspirin EC] 81 mg PO DAILY 07/07/17 [History] Carbidopa/Levodopa 25/100 [Sinemet 25/100] 1 tab PO HS 07/07/17 [History] Cetirizine HCl [Zyrtec] 10 mg PO DAILY 07/07/17 [History] Digoxin [Lanoxin] 0.125 mg PO DAILY 07/07/17 [History] Furosemide [Lasix] 40 mg PO DAILY 07/07/17 [History] Melatonin [Melatin] 6 mg PO HS 07/07/17 [History] Rivaroxaban [Xarelto] 20 mg PO DAILY 07/07/17 [History] Spironolactone [Aldactone] 25 mg PO DAILY 07/07/17 [History] Tramadol HCl [Ultram] 50 mg PO TID PRN 07/07/17 [History] Atorvastatin Calcium [Lipitor] 80 mg PO QPM 08/21/18 [History] Carvedilol [Coreg] 12.5 mg PO BID 08/21/18 [History] Cholecalciferol (Vitamin D3) [Vitamin D3] 2,000 unit PO QPM 08/21/18 [History] FLUoxetine HCl [Prozac] 40 mg PO DAILY 08/21/18 [History] Gabapentin [Neurontin] 800 mg PO QID 08/21/18 [History] Ipratropium/Albuterol Sulfate [Iprat-Albut 0.5-3(2.5) mg/3 ml] 3 ml IH Q4H PRN 08/21/18 [History] Losartan Potassium 25 mg PO DAILY 08/21/18 [History] Potassium Chloride [Klor-Con 10] 20 meq PO DAILY 08/21/18 [History] Saxagliptin HCl [Onglyza] 5 mg PO DAILY 08/21/18 [History] Ciprofloxacin HCl [Cipro] 500 mg PO BID 4 Days #8 tablet 08/23/18 [Rx] Gabapentin [Neurontin] 800 mg PO QID capsule 08/23/18 [Rx] Allergies/Adverse Reactions: Allergy/AdvReac Type Severity Reaction Status Date / Time codeine Allergy Hives Verified 08/21/18 12:02 Opioids - Morphine Analogues Allergy See Verified 08/21/18 12:02 Comments diltiazem AdvReac Nausea Verified 08/21/18 12:02 Certification: Further, I certify that my clinical findings support that this patient is homebound (i.e. absences from home require considerable and taxing effort and are for medical reasons or caodaism services or infrequently or short duration when for other reasons) because: Homebound Reason: Patient requires assistance of a person or device to safely leave home Attestation: My signature below is to certify that this patient is under my care and that I, or nurse practitioner, or a physician's assistant center manager working with me, has a [id number] encounter with this patient.
--- NOTE | 2018-08-28 14:05 | Electrocardiograph Report ---
[address] [place], [place] [address] Test Date: 2018-08-23 Pat Name: Dipesh Roberts Department: [id number] Room: [facility] Gender: M Exchange Specialist: : [id number] Requested By: Matthias Pinedo Order Number: [id number] Reading MD: Nolvia Ram Measurements Intervals [place] Rate: 88 P: MT: QRS: -46 QRSD: 102 T: 56 QT: 384 QTc: 465 Interpretive Statements Atrial fibrillation with PVCs LAD, consider left anterior fascicular block Electronically Signed On 08-28-2018 14:03:53 EST by Nolvia Ram
== END 2018-08-23 16:50 | disposition home health service (06) ==
LOC: 2SOUTHHOLD 22:45 → EMEROOARM 22:45 → SUATTDRO 08-21 04:51 → 2SOUTHHOLD 08-21 06:22
PROVIDERS: ADMIT Internal Medicine; ATTEND Hospitalist

== ENCOUNTER 2021-06-17 19:03 | Inpatient (IN) ==
[2021-06-17] MEDS ORDERED: 0.9 % Sodium Chloride 500 ML IVC ONE (19:36)
[2021-06-17 20:49] LABS: Basophils % 0.2 %; Eosinophils # 0.1 K/mcL (0.0-0.6); Eosinophils % 0.5 %; Hematocrit 47.8 % (37.5-50.1); Hemoglobin 15.3 g/dL (12.9-16.9); Immature Granulocytes % 0.8 % (0-4); Lymphocytes # 1.4 K/mcL (0.6-4.6); Lymphocytes % 8.1 %; Mean Corpuscular Hemoglobin 29.1 pg (28.0-33.3); Mean Platelet Volume 9.5 fL (9.4-12.4); Monocytes # 1.2 K/mcL (0.0-1.3); Neutrophils # 13.9 K/mcL (1.6-8.9); Platelet Count 187 K/mcL (140-400); Red Blood Count 5.25 M/mcL (4.19-5.50); Red Cell Distribution Width 13.4 % (11.5-14.5); Segmented Neutrophils % 83.4 %; White Blood Count 16.7 K/mcL (4.3-11.1)
[2021-06-17 20:57] LABS: Alanine Aminotransferase 12 Units/L (7-52); Albumin 4.1 g/dL (3.5-5.7); Albumin/Globulin Ratio 1.3 (1.1-2.2); Alkaline Phosphatase 65 Units/L (34-104); Aspartate Amino Transferase 18 Units/L (13-39); BUN/Creatinine Ratio 13 (6-26); Blood Urea Nitrogen 14 mg/dL (8-23); Calcium 9.6 mg/dL (8.6-10.3); Carbon Dioxide 26 mEq/L (23-29); Chloride 102 mEq/L (98-107); Globulin 3.2 g/dL (2.4-3.5); Glucose 129 mg/dL (70-105); Osmolality,Calculated 286 (280-300); Potassium 4.5 mEq/L (3.5-5.1); Sodium 137 mEq/L (136-145); Total Protein 7.3 g/dL (6.4-8.9); eGFR For African Americans > 60 (> 60); eGFR For Non-African Americans > 60 (> 60)
[2021-06-17 21:17] LABS: Influenza A PCR Negative (Negative); Influenza B PCR Negative (Negative); Resp. Syncytial Virus PCR Negative (Negative)
[2021-06-17] MEDS ORDERED: *HR* Metoprolol 5 MG/5 ML VIAL IVP ONE ×3 (21:23→23:28)
[2021-06-17 21:37] LABS: SARS-CoV-2 by PCR (In House) Negative (Negative)
[2021-06-17 21:45] LABS: INR 1.2; Prothrombin Time 13.7 Seconds (9.4-12.1)
[2021-06-17 21:46] LABS: Bacteria,Urine Few per hpf (None-Few); Bilirubin,Urine Negative (Negative); Blood,Urine Negative (Negative); Clarity,Urine Clear (Clear); Color,Urine Yellow (Yellow); Glucose,Urine (UA) 30 mg/dL (Normal); Ketones,Urine Negative (Negative); Leukocyte Esterase,Urine Moderate (Negative); Mucus,Urine Few per lpf (None-Few); Nitrite,Urine Negative (Negative); Protein,Urine 200 mg/dL (Neg-Trace); Specific Gravity,Urine > 1.030 (1.010-1.025); Squamous Epithelial Cell,Urine Few per hpf (None-Few); WBC,Urine 50-100 per hpf (0-3)
[2021-06-17 21:49] LABS: Activated Partial Thrombo Time 31.5 Seconds (26.0-36.0)
[2021-06-17] MEDS ORDERED: cefTRIAXone 1,000 MG in 0.9 % Sodium Chloride Mini Bag 100 ML IVPB ONE (22:14)
[2021-06-17] MEDS ORDERED: carvediloL 6.25 MG TABLET PO STA (23:52)
[2021-06-18] MEDS ORDERED: Amiodarone Premix 360 MG/200 ML BAG IVC ONE (00:54)
[2021-06-18] MEDS ORDERED: Amiodarone Premix 150 MG/100 ML BAG IVPB ONE (00:54)
[2021-06-18] MEDS ORDERED: Naloxone 0.4 MG/ML INJ IVP PRN (02:36)
[2021-06-18] MEDS ORDERED: Perflutren Lipid Microsphere 1.3 ML in 0.9 % Sodium Chloride 8.7 ML IVP PRN (02:42)
[2021-06-18] MEDS ORDERED: Furosemide 40 MG/4 ML VIAL IVP SCH ×2 (02:45→06:00)
[2021-06-18] MEDS ORDERED: Furosemide 40 MG/4 ML VIAL IVP ONE (03:25)
[2021-06-18] MEDS ORDERED: D5% in Water 1,000 ML IVC PRN (03:28)
[2021-06-18] MEDS ORDERED: *HR* Dextrose 50 % in Water (Syg) 50 ML SYRINGE IVP PRN (03:28)
[2021-06-18] MEDS ORDERED: Dextrose Gel 15 GM/37.5 ML TUBE PO PRN ×2 (03:28)
[2021-06-18] MEDS: Ipratropium/Albuterol Neb 3 ML IH SCH ×4 (03:58→20:22)
[2021-06-18] MEDS: Apixaban 5 MG TABLET PO SCH ×3 (03:59→20:25)
[2021-06-18 04:54] LABS: Adenovirus Not Detected (Not Detect); Coronavirus 229E Not Detected (Not Detect); Coronavirus HKU1 Not Detected (Not Detect); Coronavirus NL63 Not Detected (Not Detect); Coronavirus OC43 Not Detected (Not Detect); Human Metapneumovirus Not Detected (Not Detect); Human Rhinovirus/Enterovirus DETECTED (Not Detect); SARS-CoV-2 Not Detected (Not Detect)
[2021-06-18 04:55] LABS: Bordetella Pertussis Not Detected (Not Detect); Chlamydophila pneumoniae Not Detected (Not Detect); Influenza A Subtype 2009 H1 Not Detected (Not Detect); Influenza B Not Detected (Not Detect); Mycoplasma pneumoniae Not Detected (Not Detect); Parainfluenza Virus 1 Not Detected (Not Detect); Parainfluenza Virus 2 Not Detected (Not Detect); Parainfluenza Virus 3 Not Detected (Not Detect); Parainfluenza Virus 4 Not Detected (Not Detect); Respiratory Syncytial Virus Not Detected (Not Detect)
[2021-06-18] MEDS: MethylPREDNISolone 40 MG/ML VIAL IVP SCH ×2 (05:04→17:29)
[2021-06-18 07:22] LABS: BUN/Creatinine Ratio 11 (6-26); Blood Urea Nitrogen 13 mg/dL (8-23); Calcium 9.1 mg/dL (8.6-10.3); Carbon Dioxide 27 mEq/L (23-29); Chloride 100 mEq/L (98-107); Glucose 178 mg/dL (70-105); Hematocrit 45.4 % (37.5-50.1); Hemoglobin 15.1 g/dL (12.9-16.9); Magnesium 1.8 mg/dL (1.6-2.6); Mean Corpuscular HGB Conc 33.3 g/dL (31.6-35.5); Mean Corpuscular Hemoglobin 29.8 pg (28.0-33.3); Mean Corpuscular Volume 89.7 fL (83.0-100.0); Mean Platelet Volume 9.9 fL (9.4-12.4); Osmolality,Calculated 283 (280-300); Platelet Count 188 K/mcL (140-400); Red Blood Count 5.06 M/mcL (4.19-5.50); Red Cell Distribution Width 13.7 % (11.5-14.5); Sodium 134 mEq/L (136-145); White Blood Count 16.9 K/mcL (4.3-11.1); eGFR For African Americans > 60 (> 60); eGFR For Non-African Americans 60 (> 60)
[2021-06-18] MEDS: Amiodarone Premix 360 MG/200 ML BAG IVC SCH ×2 (08:16→20:25)
[2021-06-18] MEDS: Insulin LISPRO 300 UNITS/3 ML VIAL SUBQ SCH ×4 (08:24→20:22)
[2021-06-18] MEDS: Acetaminophen 325 MG TABLET PO PRN (09:37)
[2021-06-18] MEDS: Budesonide/Formoterol 160/4.5 1 PUFF INH IH SCH ×2 (10:19→20:22)
[2021-06-18] MEDS ORDERED: Gabapentin 400 MG CAPSULE PO SCH (13:00)
[2021-06-18] MEDS: carvediloL 25 MG TABLET PO SCH (17:28)
[2021-06-18] MEDS: Carbidopa/Levodopa 25/100 TABLET PO SCH (20:24)
[2021-06-18] MEDS: Gabapentin 300 MG CAPSULE PO SCH (20:25)
[2021-06-18] MEDS: Melatonin 3 MG TABLET PO PRN (23:46)
[2021-06-18] MEDS: methocarbamoL 500 MG TABLET PO PRN (23:46)
[2021-06-19] MEDS: Ipratropium/Albuterol Neb 3 ML IH SCH ×4 (03:51→20:16)
[2021-06-19] MEDS: MethylPREDNISolone 40 MG/ML VIAL IVP SCH ×2 (05:29→17:02)
[2021-06-19] MEDS: Amiodarone Premix 360 MG/200 ML BAG IVC SCH ×2 (07:12→19:23)
[2021-06-19] MEDS: Gabapentin 300 MG CAPSULE PO SCH ×2 (07:13→19:37)
[2021-06-19] MEDS: Apixaban 5 MG TABLET PO SCH ×2 (07:13→19:38)
[2021-06-19] MEDS: carvediloL 25 MG TABLET PO SCH ×2 (07:13→17:02)
[2021-06-19] MEDS: Insulin LISPRO 300 UNITS/3 ML VIAL SUBQ SCH ×4 (07:15→19:37)
[2021-06-19 07:34] LABS: Hematocrit 45.5 % (37.5-50.1); Hemoglobin 14.9 g/dL (12.9-16.9); Mean Corpuscular HGB Conc 32.7 g/dL (31.6-35.5); Mean Corpuscular Hemoglobin 28.9 pg (28.0-33.3); Mean Corpuscular Volume 88.3 fL (83.0-100.0); Mean Platelet Volume 9.8 fL (9.4-12.4); Platelet Count 166 K/mcL (140-400); Red Blood Count 5.15 M/mcL (4.19-5.50); Red Cell Distribution Width 13.3 % (11.5-14.5); White Blood Count 15.3 K/mcL (4.3-11.1)
[2021-06-19 08:57] LABS: BUN/Creatinine Ratio 19 (6-26); Blood Urea Nitrogen 18 mg/dL (8-23); Calcium 9.1 mg/dL (8.6-10.3); Carbon Dioxide 26 mEq/L (23-29); Chloride 101 mEq/L (98-107); Glucose 201 mg/dL (70-105); Osmolality,Calculated 286 (280-300); Potassium 4.2 mEq/L (3.5-5.1); Sodium 134 mEq/L (136-145); eGFR For African Americans > 60 (> 60); eGFR For Non-African Americans > 60 (> 60)
[2021-06-19] MEDS: Budesonide/Formoterol 160/4.5 1 PUFF INH IH SCH ×2 (09:37→20:16)
[2021-06-19] MEDS: methocarbamoL 500 MG TABLET PO PRN ×2 (11:50→23:36)
[2021-06-19] MEDS: Acetaminophen 325 MG TABLET PO PRN ×2 (11:50→23:36)
[2021-06-19] MEDS: Carbidopa/Levodopa 25/100 TABLET PO SCH (19:38)
[2021-06-20] MEDS: Ipratropium/Albuterol Neb 3 ML IH SCH ×4 (03:32→20:05)
[2021-06-20] MEDS ORDERED: *HR* Metoprolol 5 MG/5 ML VIAL IVP ONE (04:52)
[2021-06-20] MEDS: MethylPREDNISolone 40 MG/ML VIAL IVP SCH (05:05)
[2021-06-20] MEDS: Amiodarone Premix 360 MG/200 ML BAG IVC SCH (06:12)
[2021-06-20 07:04] LABS: Hematocrit 46.8 % (37.5-50.1); Hemoglobin 15.8 g/dL (12.9-16.9); Mean Corpuscular HGB Conc 33.8 g/dL (31.6-35.5); Mean Corpuscular Hemoglobin 29.9 pg (28.0-33.3); Mean Corpuscular Volume 88.5 fL (83.0-100.0); Mean Platelet Volume 10.3 fL (9.4-12.4); Platelet Count 201 K/mcL (140-400); Red Blood Count 5.29 M/mcL (4.19-5.50); Red Cell Distribution Width 13.3 % (11.5-14.5); White Blood Count 18.6 K/mcL (4.3-11.1)
[2021-06-20] MEDS: Insulin LISPRO 300 UNITS/3 ML VIAL SUBQ SCH ×4 (07:58→19:32)
[2021-06-20] MEDS: Gabapentin 300 MG CAPSULE PO SCH ×2 (07:58→19:31)
[2021-06-20] MEDS: Apixaban 5 MG TABLET PO SCH ×2 (07:58→19:31)
[2021-06-20] MEDS: carvediloL 25 MG TABLET PO SCH ×2 (07:58→17:19)
[2021-06-20] MEDS: methocarbamoL 500 MG TABLET PO PRN (08:02)
[2021-06-20 08:38] LABS: BUN/Creatinine Ratio 26 (6-26); Blood Urea Nitrogen 27 mg/dL (8-23); Calcium 9.2 mg/dL (8.6-10.3); Carbon Dioxide 16 mEq/L (23-29); Chloride 100 mEq/L (98-107); Glucose 253 mg/dL (70-105); Magnesium 1.9 mg/dL (1.6-2.6); Osmolality,Calculated 288 (280-300); Potassium 4.9 mEq/L (3.5-5.1); Sodium 132 mEq/L (136-145); eGFR For African Americans > 60 (> 60); eGFR For Non-African Americans > 60 (> 60)
[2021-06-20] MEDS: Budesonide/Formoterol 160/4.5 1 PUFF INH IH SCH ×2 (10:50→20:07)
[2021-06-20] MEDS: Furosemide 40 MG/4 ML VIAL IVP SCH ×2 (11:21→19:32)
[2021-06-20] MEDS ORDERED: Magnesium Sulfate 1 GM/102 ML PIGGYBACK IVPB ONE (12:54)
[2021-06-20] MEDS: predniSONE 20 MG TABLET PO SCH (14:23)
[2021-06-20] MEDS: Carbidopa/Levodopa 25/100 TABLET PO SCH (19:31)
[2021-06-21] MEDS: Acetaminophen 325 MG TABLET PO PRN (00:22)
[2021-06-21] MEDS: methocarbamoL 500 MG TABLET PO PRN (00:22)
[2021-06-21] MEDS: Melatonin 3 MG TABLET PO PRN (01:52)
[2021-06-21] MEDS: Ipratropium/Albuterol Neb 3 ML IH SCH ×4 (03:56→20:28)
[2021-06-21 05:07] LABS: Basophils # 0.1 K/mcL (0.0-0.2); Basophils % 0.5 %; Hematocrit 44.5 % (37.5-50.1); Hemoglobin 14.8 g/dL (12.9-16.9); Lymphocytes # 1.1 K/mcL (0.6-4.6); Lymphocytes % 7.3 %; Mean Corpuscular HGB Conc 33.3 g/dL (31.6-35.5); Mean Corpuscular Hemoglobin 29.1 pg (28.0-33.3); Mean Corpuscular Volume 87.6 fL (83.0-100.0); Mean Platelet Volume 9.8 fL (9.4-12.4); Monocytes # 0.8 K/mcL (0.0-1.3); Monocytes % 5.2 %; Neutrophils # 12.5 K/mcL (1.6-8.9); Platelet Count 193 K/mcL (140-400); Red Blood Count 5.08 M/mcL (4.19-5.50); Red Cell Distribution Width 13.3 % (11.5-14.5); White Blood Count 14.7 K/mcL (4.3-11.1)
[2021-06-21 05:20] LABS: BUN/Creatinine Ratio 26 (6-26); Blood Urea Nitrogen 33 mg/dL (8-23); Calcium 9.1 mg/dL (8.6-10.3); Carbon Dioxide 27 mEq/L (23-29); Chloride 98 mEq/L (98-107); Glucose 210 mg/dL (70-105); Osmolality,Calculated 289 (280-300); Potassium 3.9 mEq/L (3.5-5.1); Sodium 133 mEq/L (136-145); eGFR For African Americans > 60 (> 60); eGFR For Non-African Americans 56 (> 60)
[2021-06-21] MEDS: Insulin LISPRO 300 UNITS/3 ML VIAL SUBQ SCH ×4 (08:46→21:30)
[2021-06-21] MEDS: Apixaban 5 MG TABLET PO SCH ×2 (08:47→21:32)
[2021-06-21] MEDS: Gabapentin 300 MG CAPSULE PO SCH ×2 (08:47→21:31)
[2021-06-21] MEDS: Furosemide 40 MG/4 ML VIAL IVP SCH (08:47)
[2021-06-21] MEDS: carvediloL 25 MG TABLET PO SCH ×2 (08:47→16:39)
[2021-06-21] MEDS: predniSONE 20 MG TABLET PO SCH (08:47)
[2021-06-21] MEDS: Budesonide/Formoterol 160/4.5 1 PUFF INH IH SCH ×2 (11:23→20:28)
[2021-06-21] MEDS: DilTIAZem CD (24hr) 180 MG CAP.ER.24H PO SCH (11:51)
[2021-06-21] MEDS: Carbidopa/Levodopa 25/100 TABLET PO SCH (21:31)
[2021-06-22] MEDS: Acetaminophen 325 MG TABLET PO PRN (01:06)
[2021-06-22 02:26] LABS: Basophils # 0.1 K/mcL (0.0-0.2); Hematocrit 44.8 % (37.5-50.1); Hemoglobin 15.1 g/dL (12.9-16.9); Immature Granulocytes % 3.9 % (0-4); Lymphocytes % 7.7 %; Mean Corpuscular HGB Conc 33.7 g/dL (31.6-35.5); Mean Corpuscular Hemoglobin 29.1 pg (28.0-33.3); Mean Corpuscular Volume 86.3 fL (83.0-100.0); Mean Platelet Volume 9.7 fL (9.4-12.4); Monocytes # 1.2 K/mcL (0.0-1.3); Monocytes % 8.8 %; Neutrophils # 10.4 K/mcL (1.6-8.9); Platelet Count 193 K/mcL (140-400); Red Blood Count 5.19 M/mcL (4.19-5.50); Red Cell Distribution Width 13.3 % (11.5-14.5); Segmented Neutrophils % 78.6 %; White Blood Count 13.2 K/mcL (4.3-11.1)
[2021-06-22 02:36] LABS: BUN/Creatinine Ratio 26 (6-26); Blood Urea Nitrogen 35 mg/dL (8-23); Calcium 8.9 mg/dL (8.6-10.3); Carbon Dioxide 26 mEq/L (23-29); Chloride 99 mEq/L (98-107); Glucose 207 mg/dL (70-105); Osmolality,Calculated 292 (280-300); Sodium 134 mEq/L (136-145); eGFR For African Americans > 60 (> 60); eGFR For Non-African Americans 53 (> 60)
[2021-06-22] MEDS: Ipratropium/Albuterol Neb 3 ML IH SCH ×4 (03:29→20:43)
[2021-06-22] MEDS: Gabapentin 300 MG CAPSULE PO SCH ×2 (08:37→20:18)
[2021-06-22] MEDS: predniSONE 20 MG TABLET PO SCH (08:37)
[2021-06-22] MEDS: Apixaban 5 MG TABLET PO SCH ×2 (08:38→20:18)
[2021-06-22] MEDS: Insulin LISPRO 300 UNITS/3 ML VIAL SUBQ SCH ×4 (08:38→21:29)
[2021-06-22] MEDS: DilTIAZem CD (24hr) 180 MG CAP.ER.24H PO SCH (08:38)
[2021-06-22] MEDS: carvediloL 25 MG TABLET PO SCH ×2 (08:38→16:55)
[2021-06-22] MEDS: Furosemide 40 MG TABLET PO SCH (08:38)
[2021-06-22] MEDS: Budesonide/Formoterol 160/4.5 1 PUFF INH IH SCH ×2 (10:56→20:44)
[2021-06-22] MEDS: Carbidopa/Levodopa 25/100 TABLET PO SCH (20:18)
[2021-06-23 02:03] LABS: Hematocrit 45.8 % (37.5-50.1); Hemoglobin 15.4 g/dL (12.9-16.9); Mean Corpuscular HGB Conc 33.6 g/dL (31.6-35.5); Mean Corpuscular Hemoglobin 29.4 pg (28.0-33.3); Mean Corpuscular Volume 87.4 fL (83.0-100.0); Mean Platelet Volume 9.4 fL (9.4-12.4); Platelet Count 207 K/mcL (140-400); Red Blood Count 5.24 M/mcL (4.19-5.50); Red Cell Distribution Width 13.3 % (11.5-14.5); White Blood Count 14.2 K/mcL (4.3-11.1)
[2021-06-23 02:21] LABS: BUN/Creatinine Ratio 33 (6-26); Blood Urea Nitrogen 35 mg/dL (8-23); Carbon Dioxide 27 mEq/L (23-29); Chloride 100 mEq/L (98-107); Glucose 174 mg/dL (70-105); Osmolality,Calculated 292 (280-300); Potassium 4.1 mEq/L (3.5-5.1); Sodium 135 mEq/L (136-145); eGFR For African Americans > 60 (> 60); eGFR For Non-African Americans > 60 (> 60)
[2021-06-23 02:22] LABS: Lymphocytes # 2.6 K/mcL (0.6-4.6); Monocytes # 0.3 K/mcL (0.0-1.3); Neutrophils # 9.9 K/mcL (1.6-8.9); Platelet Estimate Normal (Normal); Reactive Lymphocytes Present (Not Present)
[2021-06-23] MEDS: Ipratropium/Albuterol Neb 3 ML IH SCH ×4 (04:01→20:50)
[2021-06-23] MEDS: Insulin LISPRO 300 UNITS/3 ML VIAL SUBQ SCH ×4 (08:37→20:43)
[2021-06-23] MEDS: carvediloL 25 MG TABLET PO SCH ×2 (08:37→17:14)
[2021-06-23] MEDS: DilTIAZem CD (24hr) 180 MG CAP.ER.24H PO SCH (08:37)
[2021-06-23] MEDS: Apixaban 5 MG TABLET PO SCH ×2 (08:37→20:42)
[2021-06-23] MEDS: Furosemide 40 MG TABLET PO SCH (08:37)
[2021-06-23] MEDS: Gabapentin 300 MG CAPSULE PO SCH ×2 (08:38→20:42)
[2021-06-23] MEDS: predniSONE 20 MG TABLET PO SCH (08:38)
[2021-06-23] MEDS: Budesonide/Formoterol 160/4.5 1 PUFF INH IH SCH ×2 (10:55→20:50)
[2021-06-23] MEDS ORDERED: Benzonatate 100 MG CAPSULE PO PRN (17:44)
[2021-06-23] MEDS: Carbidopa/Levodopa 25/100 TABLET PO SCH (20:42)
[2021-06-24] MEDS: Ipratropium/Albuterol Neb 3 ML IH SCH ×4 (03:51→20:59)
[2021-06-24 05:21] LABS: Hematocrit 45.8 % (37.5-50.1); Hemoglobin 15.4 g/dL (12.9-16.9); Mean Corpuscular HGB Conc 33.6 g/dL (31.6-35.5); Mean Corpuscular Hemoglobin 29.5 pg (28.0-33.3); Mean Corpuscular Volume 87.7 fL (83.0-100.0); Mean Platelet Volume 9.5 fL (9.4-12.4); Platelet Count 192 K/mcL (140-400); Red Blood Count 5.22 M/mcL (4.19-5.50); Red Cell Distribution Width 13.4 % (11.5-14.5); White Blood Count 16.9 K/mcL (4.3-11.1)
[2021-06-24 05:39] LABS: BUN/Creatinine Ratio 31 (6-26); Blood Urea Nitrogen 32 mg/dL (8-23); Calcium 8.9 mg/dL (8.6-10.3); Carbon Dioxide 26 mEq/L (23-29); Chloride 98 mEq/L (98-107); Glucose 191 mg/dL (70-105); Osmolality,Calculated 288 (280-300); Potassium 4.1 mEq/L (3.5-5.1); Sodium 133 mEq/L (136-145); eGFR For African Americans > 60 (> 60); eGFR For Non-African Americans > 60 (> 60)
[2021-06-24] MEDS: Insulin LISPRO 300 UNITS/3 ML VIAL SUBQ SCH ×4 (08:37→20:20)
[2021-06-24] MEDS: carvediloL 25 MG TABLET PO SCH ×2 (08:38→17:27)
[2021-06-24] MEDS: Furosemide 40 MG TABLET PO SCH (08:38)
[2021-06-24] MEDS: Gabapentin 300 MG CAPSULE PO SCH ×2 (08:39→20:18)
[2021-06-24] MEDS: predniSONE 20 MG TABLET PO SCH (08:39)
[2021-06-24] MEDS: Apixaban 5 MG TABLET PO SCH ×2 (08:39→20:18)
[2021-06-24] MEDS: DilTIAZem CD (24hr) 180 MG CAP.ER.24H PO SCH (08:39)
[2021-06-24] MEDS: Budesonide/Formoterol 160/4.5 1 PUFF INH IH SCH ×2 (10:39→20:59)
[2021-06-24] MEDS: Carbidopa/Levodopa 25/100 TABLET PO SCH (20:19)
[2021-06-25] MEDS: Ipratropium/Albuterol Neb 3 ML IH SCH ×3 (03:40→16:09)
[2021-06-25] MEDS: Insulin LISPRO 300 UNITS/3 ML VIAL SUBQ SCH ×2 (07:46→12:13)
[2021-06-25] MEDS: Furosemide 40 MG TABLET PO SCH (07:48)
[2021-06-25] MEDS: DilTIAZem CD (24hr) 180 MG CAP.ER.24H PO SCH (07:48)
[2021-06-25] MEDS: Gabapentin 300 MG CAPSULE PO SCH (07:48)
[2021-06-25] MEDS: Apixaban 5 MG TABLET PO SCH (07:48)
[2021-06-25] MEDS: carvediloL 25 MG TABLET PO SCH (07:48)
[2021-06-25] MEDS: Budesonide/Formoterol 160/4.5 1 PUFF INH IH SCH (09:18)
[2021-06-25 10:08] LABS: Adenovirus Not Detected (Not Detect); Bordetella Pertussis Not Detected (Not Detect); Chlamydophila pneumoniae Not Detected (Not Detect); Coronavirus 229E Not Detected (Not Detect); Coronavirus HKU1 Not Detected (Not Detect); Coronavirus NL63 Not Detected (Not Detect); Coronavirus OC43 Not Detected (Not Detect); Human Metapneumovirus Not Detected (Not Detect); Human Rhinovirus/Enterovirus DETECTED (Not Detect); Influenza A Subtype 2009 H1 Not Detected (Not Detect); Influenza B Not Detected (Not Detect); Mycoplasma pneumoniae Not Detected (Not Detect); Parainfluenza Virus 1 Not Detected (Not Detect); Parainfluenza Virus 2 Not Detected (Not Detect); Parainfluenza Virus 3 Not Detected (Not Detect); Parainfluenza Virus 4 Not Detected (Not Detect); Respiratory Syncytial Virus Not Detected (Not Detect); SARS-CoV-2 Not Detected (Not Detect)
[2021-06-25 12:20] VITALS: BP 129/70; PULSE 83; TEMP 97.5; O2SAT 92
== END 2021-06-25 16:15 | DRG 291 ==
LOC: EMEROOARM 19:03 → 2NNU 19:03 → SUATTDRO 06-18 02:28 → 2NNU 06-18 03:07 → SUATTDRO 06-20 13:18 → 3ANU 06-21 14:24
PROVIDERS: ADMIT Student in an Organized Health Care Education/Training Program; ATTEND Internal Medicine

== ENCOUNTER 2021-10-26 19:16 | Inpatient (IN) ==
[2021-10-26 22:08] LABS: VBG HCO3 28 mEq/L (21-27); VBG PCO2 47 mmHg (41-51); VBG PH 7.38 pH Units (7.32-7.42); VBG PO2 45 mmHg (25-50)
[2021-10-26 22:09] LABS: Basophils % 0.3 %; Eosinophils # 0.2 K/mcL (0.0-0.6); Eosinophils % 1.5 %; Hematocrit 42.7 % (37.5-50.1); Hemoglobin 13.7 g/dL (12.9-16.9); Immature Granulocytes % 0.5 % (0-4); Lymphocytes # 1.5 K/mcL (0.6-4.6); Lymphocytes % 13.2 %; Mean Corpuscular HGB Conc 32.1 g/dL (31.6-35.5); Mean Corpuscular Hemoglobin 29.7 pg (28.0-33.3); Mean Corpuscular Volume 92.6 fL (83.0-100.0); Mean Platelet Volume 9.7 fL (9.4-12.4); Monocytes # 1.3 K/mcL (0.0-1.3); Monocytes % 11.6 %; Neutrophils # 8.2 K/mcL (1.6-8.9); Platelet Count 182 K/mcL (140-400); Red Blood Count 4.61 M/mcL (4.19-5.50); Red Cell Distribution Width 12.8 % (11.5-14.5); Segmented Neutrophils % 72.9 %; White Blood Count 11.2 K/mcL (4.3-11.1)
[2021-10-26 22:30] LABS: Alanine Aminotransferase 19 Units/L (7-52); Albumin/Globulin Ratio 1.3 (1.1-2.2); Alkaline Phosphatase 49 Units/L (34-104); Aspartate Amino Transferase 15 Units/L (13-39); BUN/Creatinine Ratio 14 (6-26); Bilirubin,Direct 0.2 mg/dL (0.0-0.2); Bilirubin,Total 1.2 mg/dL (0.3-1.0); Blood Urea Nitrogen 18 mg/dL (8-23); Calcium 9.1 mg/dL (8.6-10.3); Carbon Dioxide 27 mEq/L (23-29); Chloride 103 mEq/L (98-107); Globulin 3.1 g/dL (2.4-3.5); Glucose 125 mg/dL (70-105); Osmolality,Calculated 293 (280-300); Potassium 3.7 mEq/L (3.5-5.1); Sodium 140 mEq/L (136-145); Total Protein 7.1 g/dL (6.4-8.9); eGFR For African Americans > 60 (> 60); eGFR For Non-African Americans 55 (> 60)
[2021-10-26 22:32] LABS: Troponin I 0.03 ng/mL (< 0.04)
[2021-10-26 23:02] LABS: Adenovirus Not Detected (Not Detect); Bordetella Pertussis Not Detected (Not Detect); Chlamydophila pneumoniae Not Detected (Not Detect); Coronavirus 229E Not Detected (Not Detect); Coronavirus HKU1 Not Detected (Not Detect); Coronavirus NL63 Not Detected (Not Detect); Coronavirus OC43 Not Detected (Not Detect); Human Metapneumovirus Not Detected (Not Detect); Human Rhinovirus/Enterovirus Not Detected (Not Detect); Influenza A Subtype 2009 H1 Not Detected (Not Detect); Influenza B Not Detected (Not Detect); Mycoplasma pneumoniae Not Detected (Not Detect); Parainfluenza Virus 1 Not Detected (Not Detect); Parainfluenza Virus 2 Not Detected (Not Detect); Parainfluenza Virus 3 Not Detected (Not Detect); Parainfluenza Virus 4 Not Detected (Not Detect); Respiratory Syncytial Virus Not Detected (Not Detect); SARS-CoV-2 Not Detected (Not Detect)
[2021-10-26] MEDS ORDERED: Furosemide 40 MG/4 ML VIAL IVP ONE (23:15)
[2021-10-26] MEDS ORDERED: Azithromycin 250 MG TABLET PO ONE (23:15)
[2021-10-27] MEDS ORDERED: Melatonin 3 MG TABLET PO PRN (02:31)
[2021-10-27] MEDS ORDERED: Naloxone 0.4 MG/ML INJ IVP PRN (02:31)
[2021-10-27] MEDS ORDERED: Acetaminophen 325 MG TABLET PO PRN (02:31)
[2021-10-27] MEDS ORDERED: methylPREDNISolone 125 MG/2 ML VIAL IVP ONE (02:35)
[2021-10-27] MEDS: Ipratropium/Albuterol Neb 3 ML IH SCH ×6 (03:51→23:07)
[2021-10-27 05:57] LABS: Basophils % 0.3 %; Eosinophils # 0.1 K/mcL (0.0-0.6); Eosinophils % 1.3 %; Hematocrit 42.1 % (37.5-50.1); Hemoglobin 13.5 g/dL (12.9-16.9); Immature Granulocytes % 0.4 % (0-4); Lymphocytes % 9.5 %; Mean Corpuscular HGB Conc 32.1 g/dL (31.6-35.5); Mean Corpuscular Hemoglobin 29.1 pg (28.0-33.3); Mean Corpuscular Volume 90.7 fL (83.0-100.0); Mean Platelet Volume 10.2 fL (9.4-12.4); Monocytes # 0.8 K/mcL (0.0-1.3); Monocytes % 7.1 %; Neutrophils # 8.7 K/mcL (1.6-8.9); Platelet Count 184 K/mcL (140-400); Red Blood Count 4.64 M/mcL (4.19-5.50); Red Cell Distribution Width 12.8 % (11.5-14.5); Segmented Neutrophils % 81.4 %; White Blood Count 10.7 K/mcL (4.3-11.1)
[2021-10-27 05:59] LABS: INR 1.3
[2021-10-27 06:31] LABS: BUN/Creatinine Ratio 14 (6-26); Blood Urea Nitrogen 18 mg/dL (8-23); Calcium 9.2 mg/dL (8.6-10.3); Carbon Dioxide 26 mEq/L (23-29); Chloride 102 mEq/L (98-107); Glucose 140 mg/dL (70-105); Osmolality,Calculated 292 (280-300); Phosphorous 3.5 mg/dL (2.7-4.5); Potassium 3.7 mEq/L (3.5-5.1); Sodium 139 mEq/L (136-145); eGFR For African Americans > 60 (> 60); eGFR For Non-African Americans 54 (> 60)
[2021-10-27] MEDS ORDERED: Dextrose 4 GM Chewable Tablets PO PRN ×2 (06:41)
[2021-10-27] MEDS ORDERED: *HR* Dextrose 50 % in Water (Syg) 50 ML SYRINGE IVP PRN (06:41)
[2021-10-27] MEDS ORDERED: D5% in Water 1,000 ML IVC PRN (06:41)
[2021-10-27 07:24] LABS: Thyroid Stimulating Hormone 2.188 mcIU/mL (0.340-5.600)
[2021-10-27] MEDS: Budesonide/Formoterol 160/4.5 1 PUFF INH IH SCH ×2 (07:51→19:12)
[2021-10-27] MEDS: DilTIAZem CD (24hr) 180 MG CAP.ER.24H PO SCH (08:27)
[2021-10-27] MEDS: carvediloL 25 MG TABLET PO SCH ×2 (08:28→20:34)
[2021-10-27] MEDS: Furosemide 40 MG/4 ML VIAL IVP SCH (08:28)
[2021-10-27] MEDS: Apixaban 5 MG TABLET PO SCH ×2 (08:28→20:34)
[2021-10-27] MEDS: predniSONE 20 MG TABLET PO SCH (08:28)
[2021-10-27] MEDS: Insulin LISPRO 300 UNITS/3 ML VIAL SUBQ SCH ×3 (08:41→17:40)
[2021-10-27] MEDS ORDERED: Chlorhexidine Rinse 15 ML MOUTHWASH MM SCH (09:00)
[2021-10-27 11:21] LABS: Estimated Average Glucose 146 mg/dl; Hemoglobin A1C 6.7 %
[2021-10-28] MEDS: Ipratropium/Albuterol Neb 3 ML IH SCH ×6 (03:43→23:21)
[2021-10-28 05:04] LABS: Basophils % 0.1 %; Hematocrit 40.2 % (37.5-50.1); Hemoglobin 13.2 g/dL (12.9-16.9); Immature Granulocytes % 0.7 % (0-4); Lymphocytes # 0.9 K/mcL (0.6-4.6); Lymphocytes % 8.6 %; Mean Corpuscular HGB Conc 32.8 g/dL (31.6-35.5); Mean Corpuscular Hemoglobin 29.5 pg (28.0-33.3); Mean Corpuscular Volume 89.9 fL (83.0-100.0); Mean Platelet Volume 9.7 fL (9.4-12.4); Monocytes # 0.9 K/mcL (0.0-1.3); Monocytes % 8.7 %; Neutrophils # 8.1 K/mcL (1.6-8.9); Platelet Count 208 K/mcL (140-400); Red Blood Count 4.47 M/mcL (4.19-5.50); Red Cell Distribution Width 12.5 % (11.5-14.5); Segmented Neutrophils % 81.9 %; White Blood Count 9.9 K/mcL (4.3-11.1)
[2021-10-28 05:26] LABS: BUN/Creatinine Ratio 22 (6-26); Blood Urea Nitrogen 26 mg/dL (8-23); Calcium 9.3 mg/dL (8.6-10.3); Carbon Dioxide 28 mEq/L (23-29); Chloride 101 mEq/L (98-107); Glucose 224 mg/dL (70-105); Osmolality,Calculated 298 (280-300); Potassium 3.9 mEq/L (3.5-5.1); Sodium 138 mEq/L (136-145); eGFR For African Americans > 60 (> 60); eGFR For Non-African Americans > 60 (> 60)
[2021-10-28] MEDS: Budesonide/Formoterol 160/4.5 1 PUFF INH IH SCH ×2 (07:13→20:37)
[2021-10-28] MEDS: carvediloL 25 MG TABLET PO SCH ×2 (07:20→20:32)
[2021-10-28] MEDS: Apixaban 5 MG TABLET PO SCH ×2 (07:20→20:32)
[2021-10-28] MEDS: Furosemide 40 MG/4 ML VIAL IVP SCH (07:20)
[2021-10-28] MEDS: predniSONE 20 MG TABLET PO SCH (07:20)
[2021-10-28] MEDS: DilTIAZem CD (24hr) 180 MG CAP.ER.24H PO SCH (07:21)
[2021-10-28] MEDS: Insulin LISPRO 300 UNITS/3 ML VIAL SUBQ SCH ×3 (07:22→16:43)
[2021-10-28] MEDS: methocarbamoL 500 MG TABLET PO SCH (20:32)
[2021-10-28] MEDS: Gabapentin 300 MG CAPSULE PO SCH (20:33)
[2021-10-28] MEDS ORDERED: Carbidopa/Levodopa 25/100 TABLET PO SCH (21:00)
[2021-10-29 01:14] LABS: Basophils % 0.1 %; Eosinophils % 0.1 %; Hemoglobin 12.9 g/dL (12.9-16.9); Immature Granulocytes % 0.6 % (0-4); Lymphocytes # 0.9 K/mcL (0.6-4.6); Lymphocytes % 7.8 %; Mean Corpuscular HGB Conc 31.5 g/dL (31.6-35.5); Mean Corpuscular Hemoglobin 28.6 pg (28.0-33.3); Mean Corpuscular Volume 90.9 fL (83.0-100.0); Mean Platelet Volume 9.8 fL (9.4-12.4); Monocytes # 1.1 K/mcL (0.0-1.3); Neutrophils # 9.7 K/mcL (1.6-8.9); Platelet Count 204 K/mcL (140-400); Red Blood Count 4.51 M/mcL (4.19-5.50); Red Cell Distribution Width 12.5 % (11.5-14.5); Segmented Neutrophils % 82.4 %; White Blood Count 11.7 K/mcL (4.3-11.1)
[2021-10-29 01:39] LABS: Magnesium 2.1 mg/dL (1.6-2.6); Phosphorous 3.4 mg/dL (2.7-4.5)
[2021-10-29 01:53] LABS: BUN/Creatinine Ratio 31 (6-26); Blood Urea Nitrogen 35 mg/dL (8-23); Calcium 9.1 mg/dL (8.6-10.3); Carbon Dioxide 21 mEq/L (23-29); Chloride 102 mEq/L (98-107); Glucose 226 mg/dL (70-105); Osmolality,Calculated 293 (280-300); Potassium 4.5 mEq/L (3.5-5.1); Sodium 134 mEq/L (136-145); eGFR For African Americans > 60 (> 60); eGFR For Non-African Americans > 60 (> 60)
[2021-10-29] MEDS: Ipratropium/Albuterol Neb 3 ML IH SCH ×4 (03:41→15:56)
[2021-10-29] MEDS: Budesonide/Formoterol 160/4.5 1 PUFF INH IH SCH (07:44)
[2021-10-29] MEDS ORDERED: Furosemide 40 MG TABLET PO SCH (08:00)
[2021-10-29] MEDS: DilTIAZem CD (24hr) 180 MG CAP.ER.24H PO SCH (08:24)
[2021-10-29] MEDS: Gabapentin 300 MG CAPSULE PO SCH (08:24)
[2021-10-29] MEDS: carvediloL 25 MG TABLET PO SCH (08:24)
[2021-10-29] MEDS: predniSONE 20 MG TABLET PO SCH (08:24)
[2021-10-29] MEDS: Apixaban 5 MG TABLET PO SCH (08:24)
[2021-10-29] MEDS: Insulin LISPRO 300 UNITS/3 ML VIAL SUBQ SCH ×2 (08:25→12:58)
[2021-10-29] MEDS: methocarbamoL 500 MG TABLET PO SCH (08:27)
[2021-10-29 12:35] VITALS: BP 124/93; PULSE 78; TEMP 97.2; O2SAT 98
== END 2021-10-29 16:25 | disposition home health service (06) | DRG 291 ==
LOC: EMEROOARM 19:16 → 2ANU 19:16 → SUATTDRO 10-27 00:44 → 2NENU 10-27 00:47
PROVIDERS: ADMIT Internal Medicine; ATTEND Internal Medicine